=== PATIENT | female | born 1950 | race Caucasian/White ===

== ENCOUNTER 2018-04-10 06:30 | Emergency (ER) | payer OTHER ==
[~2018-04-10] VITALS: Ht 160 cm; Wt 68.0 kg
[~2018-04-10 06:30] MED LIST: ALEVE220 MG PO; AVELOX 400 MG400 MG PO; B-COMPLEX-VITA1 EACH; BYSTOLIC 5 MG5 M1; CARVEDILOL3.125 MG PO; CHOLESTEROL; COUMADIN; COUMADIN 2.5MG2.5 M1 PO; COUMADIN 5 MG TA5 M1 PO; DIABETA 2.5MG2.5 MG PO; DOXYCYCLINE 10100 M1 PO; ENOXAPARIN80 MG/0.1 SUBQ; FISHOIL; FUROSEMIDE 40 M40 M1 PO; GLUCOPHAGE500 MG PO; LANOXIN 0.250.25 M1 PO; LISINOPRIL; LOSARTAN-HCTZ1 EAC1 PO; MEDROLDOSEPACK PO; METFORMIN HCL500 M2 PO; NEXIUM40 MG PO; OMEPRAZOLE PO; OMEPRAZOLE20 MG PO; POTASSIUM20 PO; PRAVASTATIN SOD40 MG PO; PREDNISONE 10 M10 M1 PO; RESTORIL15 MG PO; VENLAFAXIN37.5 MG/1 PER TUBE; VENTOLIN HFA 1818 GM INH; VENTOLIN17 GM INH; ZANTAC 150MG T150 M1; [UNRECOGNIZED DRUG - CODE]; effexor
[2018-04-10 06:55] LABS: ABSOLUTE BASOPHILS 0.1 thou/uL (0.0-0.2); ABSOLUTE EOSINOPHILS 0.2 thou/uL (0.0-0.7); ABSOLUTE LYMPHOCYTES 0.9 thou/uL (0.8-5.3); ABSOLUTE MONOCYTES 0.6 thou/uL (0.0-1.2); ABSOLUTE NEUTROPHILS 6.5 thou/uL (1.6-8.1); BASOPHILS 0.9 %; EOSINOPHILS 1.9 %; HEMOGLOBIN 8.7 gm/dL (12.0-15.0); MONOCYTES 7.7 %; MPV 7.7 fl. (7.2-11.1); NUCLEATED RBCS 0 /100WBC; PLATELET COUNT* 213 thou/uL (150-400); POLYS 78.5 %; RBC 3.62 mil/uL (4.20-5.00); RDW-CV 15.6 % (10.5-14.5); WBC 8.2 thou/uL (4.0-11.0)
[2018-04-10 07:11] LABS: APTT 44.8 Seconds (25.0-31.3); PROTIME 69.8 Seconds (9.20-11.50)
[2018-04-10 07:12] LABS: ANION GAP 10 mmol/L (7-16); BUN 41 mg/dL (7-18); CALCIUM 7.6 mg/dL (8.5-10.1); CHLORIDE 101 mmol/L (98-107); CO2 23 mmol/L (21-32); CREATININE 1.4 mg/dL (0.6-1.3); GLUCOSE 196 mg/dL (70-99); POTASSIUM 3.5 mmol/L (3.5-5.1); SODIUM 134 mmol/L (136-145)
[2018-04-10 07:18] LABS: INR 7.4
[2018-04-10 07:23] LABS: ALBUMIN 3.4 g/dL (3.4-5.0); ALKALINE PHOSPHATASE 104 U/L (46-116); NT-PRO BRAIN NAT PEPTIDE 727 pg/mL (<300); SGOT 22 U/L (15-37); SGPT 15 U/L (30-65); TOTAL BILIRUBIN 0.4 mg/dL (<0.1-1.0); TOTAL PROTEIN 7.3 g/dL (6.4-8.2); TROPONIN-I LEVEL <0.06 ng/mL (<0.06)
[2018-04-10 09:52] LABS: URINE BILIRUBIN NEGATIVE (Negative); URINE BLOOD NEGATIVE (Negative); URINE CLARITY CLEAR; URINE COLOR YELLOW; URINE GLUCOSE-RANDOM NEGATIVE (Negative); URINE KETONES NEGATIVE (Negative); URINE LEUKOCYTES-REFLEX NEGATIVE (Negative); URINE NITRITE-REFLEX NEGATIVE (Negative); URINE PROTEIN TRACE (Negative); URINE SPECIFIC GRAVITY 1.025 (1.005-1.030); URINE UROBILINOGEN 0.2 E.U./dl (0.2-1.0)
[2018-04-10 11:29] VITALS: BP 111/43
--- NOTE | 2018-04-10 11:52 | EKG ---
[place] [address] ELECTROCARDIOGRAM REPORT Name: CIRILO COX Room: [facility]#: [id number] Admission: 04/10/18 Attend Phys: Discharge: Date of : 50 Report #: [id number] THIS REPORT FOR: //name// [facility] ED Test Date: 2018-04-10 Test Time: 06:51:36 Pat Name: CIRILO COX Department: Room: Gender: F Special Delivery Mail Carrier: ANNIE Diaz : 1950 Requested By: González Barbosa Order Number: [id number] MD: Gaston Dallas Measurements Intervals Dennis Rate: 61 P: TN: QRS: 164 QRSD: 170 T: 95 QT: 521 QTc: 525 Interpretive Statements Atrial fibrillation LBBB Electronically Signed On 04-10-2018 11:52:38 CDT by Gaston Dallas [email or web address] <ELECTRONICALLY SIGNED> By: Gasotn Dallas MD, [facility] 04/10/18 [id number] Gaston Dallas MD, FACC /EPI
== END 2018-04-10 11:30 | disposition home or self-care (01) ==
LOC: M.ERS 06:30
PROVIDERS: Family Medicine
DX: E11.649 Type 2 diabetes mellitus with hypoglycemia without coma (principal); D68.59 Other primary thrombophilia; I10 Essential (primary) hypertension; K21.9 Gastro-esophageal reflux disease without esophagitis; J44.9 Chronic obstructive pulmonary disease, unspecified; M06.9 Rheumatoid arthritis, unspecified; E78.5 Hyperlipidemia, unspecified; I48.91 Unspecified atrial fibrillation; Z86.718 Personal history of other venous thrombosis and embolism

== ENCOUNTER → 2018-07-12 | Outpatient (CLI) | payer OTHER ==
[~2018-07-12] MED LIST changes: +ADULT LOW DOSE81 MG PO; +ALDACTONE50 MG PO; +AMPICILLIN SODIU2 GM IV; +APAP650 PO; +CIPRO500 MG PO; +COLACE100 MG PO; +ENOXAPARIN100 MG/11 SUBQ; +ENOXAPARIN80 MG/0.8 SUBQ; +FLEXERIL PO; +GENTAMICIN60 MG/6 ML IV; +IRON325 PO; +LASIX 40 MG TAB40 M2 PO; +LEXAPRO 10 MG T10 M2 PO; +MIDODRINE HCL 55 M1 PO; +MIRALAX17 GM PO; +SYNTHROID25 MC1 PO
--- NOTE | 2018-07-12 14:41 | 2DMMODE ---
[place] [address] 2 D/M-MODE ECHOCARDIOGRAM Name: CIRILO COX Room: [facility]#: [id number] Admission: 07/12/18 Attend Phys: Joseluis Diaz, Discharge: Date of : 50 Date of Service: 07/12/18 1441 Report #: [id number] THIS REPORT FOR: //name// APPROVED REPORT Study performed: 07/12/2018 09:32:34 EXAM: Comprehensive 2D, Doppler, and color-flow Echocardiogram Patient Location: Out-Patient Status: routine BSA: 1.71 HR: 52 bpm BP: 120/70 mmHg Other Information Study Quality: Good Indications Aortic Valve Disease Mechanical Aortic Valve . Mechanical Mitral Valve 2D Dimensions LVEF(%): 33.77 (>50%) IVSd: 12.95 (7-11mm) LVOT Diam: 20.78 (18-24mm) LVDd: 55.52 mm PWd: 11.87 (7-11mm) Ascending Ao: 24.96 (22-36mm) LVDs: 46.49 (25-40mm) Aortic Root: 27.19 mm Holm's LVEF: 33.77 % Volumes Left Atrial Volume (Systole) LA ESV Index: 45.50 mL/m2 Aortic Valve AoV Peak Kendall.: 2.93 m/s AO Peak Gr.: 34.42 mmHg LVOT Max P.67 mmHg AO Mean Gr.: 19.55 mmHg LVOT Mean P.86 mmHg LVOT Max V: 0.65 m/s AO V2 VTI: 61.53 cm LVOT Mean V: 0.43 m/s KATINA (VTI): 0.84 cm2 LVOT V1 VTI: 15.20 cm Mitral Valve MV Decel. Time: 425.62 [place] [address] 2 D/M-MODE ECHOCARDIOGRAM Name: CIRILO COX Room: [facility]#: [id number] Admission: 07/12/18 Attend Phys: Joseluis Diaz, Discharge: Date of : 50 Date of Service: 07/12/18 1441 Report #: [id number] MV PHT: 123.43 ms MVA (PHT): 1.78 cm2 TDI Medial E' Kendall.: 0.08 m/s Lateral E' Kendall.: 0.11 m/s Pulmonary Valve PV Peak Kendall.: 1.01 m/s PV Peak Gr.: 4.09 mmHg Tricuspid Valve RAP Estimate: 10.00 mmHg TR Peak Gr.: 40.81 mmHg RVSP: 50.81 mmHg PA Pressure: 50.81 mmHg Left Ventricle The left ventricle is normal size. There is paradoxical septal motion Mild concentric left ventricular hypertrophy. Left ventricular systolic function is moderately decreased LVEF is 40%. The left ventricular diastolic function is normal. Right Ventricle Right ventricle is mild to moderately dilated. The right ventricular systolic function is normal. Atria Left atrium is mildly dilated. The right atrium size is normal. Aortic Valve The aortic prosthesis is noted Mechanical aortic valve is present. Mild aortic regurgitation. No hemodynamically significant valvular aortic stenosis. Mitral Valve The mitral prosthesis is noted There is a mechanical mitral valve. There is no mitral valve regurgitation noted. No evidence of mitral valve stenosis. Tricuspid Valve The tricuspid valve is normal in structure. Moderate tricuspid regurgitation. Pulmonic Valve The pulmonary valve is normal in structure. There is no pulmonic [place] [address] 2 D/M-MODE ECHOCARDIOGRAM Name: CIRILO COX [id number] Admission: 07/12/18 Attend Phys: Joseluis Diaz, Discharge: Date of : 50 Date of Service: 07/12/18 1441 Report #: [id number] Great Vessels The aortic root is normal in size. The inferior vena cava is dilated with no inspiratory collapse. Pericardium There is no pericardial effusion. <Conclusion> The left ventricle is normal size. Mild concentric left ventricular hypertrophy. Left ventricular systolic function is moderately decreased LVEF is 40%. Right ventricle is mild to moderately dilated. Left atrium is mildly dilated. The aortic prosthesis is noted Mild aortic regurgitation. No hemodynamically significant valvular aortic stenosis. The mitral prosthesis is noted There is no mitral valve regurgitation noted. No evidence of mitral valve stenosis. The tricuspid valve is normal in structure. Moderate tricuspid regurgitation. The inferior vena cava is dilated with no inspiratory collapse. There is no pericardial effusion. There is paradoxical septal motion Mechanical aortic valve is present. There is a mechanical mitral valve. <ELECTRONICALLY SIGNED> By: David Pinto MD, [facility] 07/12/18 1441 [id number] David Pinto MD, FACC /INF
== END ==
LOC: M.CRD 05-22 09:00
DX: I08.2 Rheumatic disorders of both aortic and tricuspid valves (principal); I50.42 Chronic combined systolic (congestive) and diastolic (congestive) heart failure; I48.91 Unspecified atrial fibrillation; J44.9 Chronic obstructive pulmonary disease, unspecified

== ENCOUNTER 2018-07-19 09:37 | Inpatient (IN) | payer OTHER ==
[~2018-07-19] VITALS: Ht 160 cm; Wt 73.9 kg
--- NOTE | ~2018-07-19 | PROC ---
[address] [address] PROCEDURE REPORT Name: CIRILO COX Room: [address] IN M.R.#: [id number] Admission: 07/19/18 Attend Phys: Regis Lua MD Discharge: 07/22/18 Date of : 50 Report #: [id number] THIS REPORT FOR: //name// For GI report, please see the Provation report in Perceptive 7 content. By: 1535Medical Records Staff SILVIO /OWEN
[~2018-07-19 09:37] MED LIST changes: -ADULT LOW DOSE81 MG PO; -ALDACTONE50 MG PO; -AMPICILLIN SODIU2 GM IV; -APAP650 PO; -CIPRO500 MG PO; -COLACE100 MG PO; -ENOXAPARIN100 MG/11 SUBQ; -ENOXAPARIN80 MG/0.8 SUBQ; -FLEXERIL PO; -GENTAMICIN60 MG/6 ML IV; -IRON325 PO; -LASIX 40 MG TAB40 M2 PO; -LEXAPRO 10 MG T10 M2 PO; -MIDODRINE HCL 55 M1 PO; -MIRALAX17 GM PO; -SYNTHROID25 MC1 PO
[2018-07-19] MEDS ORDERED: SYNTHROID25 MC1 PO (09:55)
[2018-07-19] MEDS ORDERED: LEXAPRO 10 MG T10 M2 PO (09:56)
[2018-07-19] MEDS ORDERED: LASIX 40 MG TAB40 M2 PO (09:56)
[2018-07-19] MEDS ORDERED: LOSARTAN-HCTZ1 EAC1 PO (09:57)
[2018-07-19] MEDS ORDERED: FLEXERIL PO (09:57)
[2018-07-19] MEDS ORDERED: ALDACTONE50 MG PO (09:58)
[2018-07-19 10:00] LABS: ABSOLUTE EOSINOPHILS 0.2 thou/uL (0.0-0.7); ABSOLUTE LYMPHOCYTES 0.9 thou/uL (0.8-5.3); ABSOLUTE MONOCYTES 0.6 thou/uL (0.0-1.2); ABSOLUTE NEUTROPHILS 3.7 thou/uL (1.6-8.1); BASOPHILS 0.8 %; EOSINOPHILS 3.2 %; HEMATOCRIT 20.8 % (37.0-47.0); LYMPHOCYTES 16.2 %; MCH 26.4 pg (26.0-34.0); MCHC 31.9 g/dL (28.0-37.0); MCV 82.6 fL (80.0-100.0); MONOCYTES 10.5 %; MPV 7.3 fl. (7.2-11.1); NUCLEATED RBCS 0 /100WBC; PLATELET COUNT* 271 thou/uL (150-400); POLYS 69.3 %; RBC 2.52 mil/uL (4.20-5.00); RDW-CV 17.8 % (10.5-14.5); WBC 5.3 thou/uL (4.0-11.0)
[2018-07-19 10:09] LABS: HEMOGLOBIN 6.6 gm/dL (12.0-15.0)
[2018-07-19 10:13] LABS: ANION GAP 11 mmol/L (7-16); BUN 143 mg/dL (7-18); CALCIUM 9.5 mg/dL (8.5-10.1); CHLORIDE 89 mmol/L (98-107); CO2 28 mmol/L (21-32); CREATININE 1.9 mg/dL (0.6-1.3); GLUCOSE 168 mg/dL (70-99); POTASSIUM 3.3 mmol/L (3.5-5.1); SODIUM 128 mmol/L (136-145)
[2018-07-19 10:24] LABS: ALBUMIN 4.3 g/dL (3.4-5.0); ALKALINE PHOSPHATASE 121 U/L (46-116); NT-PRO BRAIN NAT PEPTIDE 966 pg/mL (<300); SGOT 31 U/L (15-37); SGPT 19 U/L (30-65); TOTAL BILIRUBIN 0.5 mg/dL (<0.1-1.0); TOTAL PROTEIN 8.8 g/dL (6.4-8.2); TROPONIN-I LEVEL <0.06 ng/mL (<0.06)
[2018-07-19 10:24] LABS: URINE BILIRUBIN NEGATIVE (Negative); URINE BLOOD TRACE (Negative); URINE CLARITY CLEAR; URINE COLOR YELLOW; URINE GLUCOSE-RANDOM NEGATIVE (Negative); URINE KETONES NEGATIVE (Negative); URINE LEUKOCYTES-REFLEX NEGATIVE (Negative); URINE NITRITE-REFLEX NEGATIVE (Negative); URINE PROTEIN NEGATIVE (Negative); URINE UROBILINOGEN 0.2 E.U./dl (0.2-1.0)
[2018-07-19 10:28] LABS: PROTIME 19.3 Seconds (9.20-11.50)
[2018-07-19 13:08] VITALS: BP 100/57; BP 71/31; BP 79/38; BP 89/36
[2018-07-19] MEDS ORDERED: IRON325 PO (13:52)
--- NOTE | 2018-07-19 15:00 | NUR ---
VSS, ASSUMED CARE OF PT FROM ER, ASSESSMENT PERFORMED AND CHARTED, FALL PRECAUTIONS IN PLACE AND CALL LIGHT IN REACH, PT IS A&O4 BUT VERY SLEEPY AND FORGETFUL. PT DENIES ANY PAIN, IS SB ON THE MOINITOR AND ON RA, PT IS UP WITH ONE, HER ABDOMINE IS DISTENDED AND ROUND, BP'S ARE SOFT AND I HAVE AN ORDERED TO TRANSFUSE 500 ML OF NS, WILL FOLLOW WITH PLAIN OF CARE AND HOURLY ROUNDS,
[2018-07-19 16:00] VITALS: BP 100/57
--- NOTE | 2018-07-19 17:59 | EKG ---
[place] [address] ELECTROCARDIOGRAM REPORT Name: CIRILO COX Room: [address] ADM IN M.R.#: [id number] Admission: 07/19/18 Attend Phys: Regis Lua MD Discharge: Date of : 50 Report #: [id number] THIS REPORT FOR: //name// [facility] ED Test Date: 2018-07-19 Test Time: 10:17:38 Pat Name: CIRILO COX Department: Room: [facility] Gender: F Engraved Roller Inspector: Joe HATHAWAY : 1950 Requested By: Kwesi Cruz Order Number: [id number] MD: Joseluis Diaz Measurements Intervals Thorpe Rate: 61 P: SD: QRS: 187 QRSD: 200 T: 74 QT: 497 QTc: 501 Interpretive Statements Atrial fibrillation Ventricular premature complex Nonspecific intraventricular conduction delay Compared to ECG 04/10/2018 06:51:36 Ventricular premature complex(es) now present Intraventricular conduction delay now present Left bundle-branch block no longer present Electronically Signed On 07-19-2018 17:58:56 CDT by Joseluis Diaz [email or web address] <ELECTRONICALLY SIGNED> By: Joseluis Diaz MD, FAC 07/19/18 1758 1017 [id number] Joseluis Diaz MD, [facility] /EPI
[2018-07-19 20:00] VITALS: BP 76/34
[2018-07-19 20:23] LABS: HEMATOCRIT 20.8 % (37.0-47.0)
[2018-07-19 20:43] LABS: HEMOGLOBIN 6.7 gm/dL (12.0-15.0)
[2018-07-19 23:56] VITALS: BP 75/29; BP 76/39; BP 79/28; BP 80/27; BP 83/34; BP 84/35
[2018-07-20] VITALS: BP 76/39
[2018-07-20 04:00] VITALS: BP 84/35
[2018-07-20 04:41] LABS: ABSOLUTE EOSINOPHILS 0.2 thou/uL (0.0-0.7); ABSOLUTE LYMPHOCYTES 1.1 thou/uL (0.8-5.3); ABSOLUTE MONOCYTES 0.7 thou/uL (0.0-1.2); ABSOLUTE NEUTROPHILS 3.3 thou/uL (1.6-8.1); BASOPHILS 0.9 %; EOSINOPHILS 3.8 %; HEMATOCRIT 23.4 % (37.0-47.0); HEMOGLOBIN 7.6 gm/dL (12.0-15.0); LYMPHOCYTES 21.1 %; MCH 26.9 pg (26.0-34.0); MCHC 32.7 g/dL (28.0-37.0); MCV 82.3 fL (80.0-100.0); MONOCYTES 12.4 %; MPV 7.8 fl. (7.2-11.1); NUCLEATED RBCS 0 /100WBC; PLATELET COUNT* 235 thou/uL (150-400); POLYS 61.8 %; RBC 2.84 mil/uL (4.20-5.00); RDW-CV 17.4 % (10.5-14.5); WBC 5.3 thou/uL (4.0-11.0)
[2018-07-20 04:51] LABS: INR 2.4; PROTIME 23.5 Seconds (9.20-11.50)
[2018-07-20 05:04] LABS: ALBUMIN 3.4 g/dL (3.4-5.0); CALCIUM 8.2 mg/dL (8.5-10.1); POTASSIUM 3.3 mmol/L (3.5-5.1); TOTAL BILIRUBIN 0.6 mg/dL (<0.1-1.0)
--- NOTE | 2018-07-20 05:27 | NUR ---
ASSUMED CARE OF PT AFTER REPORT AT 1930. PT A&OX4 AND LETHARGIC. VS TAKEN AND RECORDED. PHYSICAL ASSESSMENT COMPLETED AND CHARTED. PT ON RA WITH 98% O2 SAT. PT TRACING SR BBB ON TELE. PT UP WITH 1 ASSIST TO COMMODE. PTS HGB 6.7-INFORMED DR AARON WITH NEW ORDERS.HOOKED 1 UNIT PACKED RBC PROPERLY TYPED AND CROSSMATCHED AND NO UNTOWARD REACTION NOTED.INSTRUCTED ON NPO POST MIDNIGHT.COMMUNICATES UNDERSTANDING. DENIES ANY PAIN OR DISCOMFORT. HOURLY ROUNDING OBSERVED. HS REST & SAFETY GOALS ACHIEVED. CALL LIGHT WITHIN REACH.
[2018-07-20 09:30] VITALS: BP 77/32
[2018-07-20 11:56] VITALS: BP 89/38
--- NOTE | 2018-07-20 14:32 | NUR ---
Pt is A&O. at bedside. Pt is independent with ADLs, assists as needed. Pt has a walker, but does not use it currently. Pt has nebulizer. No hx of HH or SNF. Goal is to return home at dc, no needs anticipated. Following.
[2018-07-20 16:36] VITALS: BP 100/47
[2018-07-20 17:08] LABS: HEPATITIS B SURFACE AG Negative (Negative)
--- NOTE | 2018-07-20 18:24 | NUR ---
ASSUMED PT CARE AT 0700 PT IS ALERT AND ORIENTED X 3-4 PT HAS EPISODES OF FORGETFULNESS, PT DENIES PAIN OR SOA ON RA, PT IS UP WITH ASSIST X 1 BEDSIDE COMMODE, PT IS SR BBB PVC ON THE MONITOR, PT WAS NPO HAS ABDONMINAL ULTRASOUND AND ABLE TO EAT, GI SAW PT ORDERED FOR PT TO HAVE EGD TOMORROW PT IS NPO AT MIDNIGHT, PT HGB AT BEGINNING OF SHIFT WAS 7.6 PHYSICIAN ORDERED REDRAW AND ORDERD IF HGB WAS BELOW 7.5 TO TRANSFUSE 1 UNIT OF BLOOD REDRAW SHOWED PT HGB 8.1 NOTIFIED PHYSICIAN NO NEW ORDERS, GI WANTS PT COUMADIN HELD FOR EGD THIS NURSE HELD COUMADIN, WILL CONTINUE TO MONITOR
[2018-07-20 20:00] VITALS: BP 90/29
[2018-07-20 22:14] LABS: IgA 404 mg/dL (87-352); IgG 1025 mg/dL (700-1600); IgM 132 mg/dL (26-217)
[2018-07-21] VITALS (7 sets, daily range): BP systolic 80–115; BP diastolic 31–61
[2018-07-21 04:50] LABS: HEMOGLOBIN 7.7 gm/dL (12.0-15.0); MCH 26.5 pg (26.0-34.0); MCHC 31.8 g/dL (28.0-37.0); MCV 83.1 fL (80.0-100.0); MPV 7.4 fl. (7.2-11.1); RBC 2.89 mil/uL (4.20-5.00); RDW-CV 17.1 % (10.5-14.5); WBC 5.2 thou/uL (4.0-11.0)
--- NOTE | 2018-07-21 04:56 | NUR ---
ASSUMED CARE OF PT AFTER REPORT AT 1930. PT A&OX4 BUT FORGETFUL. VSS. PHSICAL ASSESSMENT COMPLETED AND CHARTED. PT ON RA WITH 92% O2 SAT. PT TRACING SR BBB ON TELE. PT UP STANBY ASSIST TO COMMODE. INSTRUCTED ON NPO FOR EGD TODAY. COMMUNICATES UNDERSTANDING BUT NEED REINFORCEMENT. DENIES ANY PAIN OR DISCOMFORT. HOURLY ROUNDING OBSERVED. HS REST & SAFETY GOALS ACHIEVED. CALL LIGHT WITHIN REACH. BED IN LOW POSITION. BED ALARM ON.
[2018-07-21 04:58] LABS: INR 2.1; PROTIME 21.7 Seconds (9.20-11.50)
[2018-07-21 05:06] LABS: ALBUMIN 3.5 g/dL (3.4-5.0); CALCIUM 8.6 mg/dL (8.5-10.1); CREATININE 1.4 mg/dL (0.6-1.3); PHOSPHORUS* 3.7 mg/dL (2.5-4.9); POTASSIUM 3.6 mmol/L (3.5-5.1); TOTAL BILIRUBIN 0.6 mg/dL (<0.1-1.0); TOTAL PROTEIN 6.7 g/dL (6.4-8.2)
--- NOTE | 2018-07-21 09:23 | CON ---
[address] [address] CONSULTATION Name: BROOKECIRILO Room: [address] IN M.R.#: [id number] Admission: 07/19/18 Attend Phys: Regis Lua MD Discharge: Date of : 50 Report #: [id number] THIS REPORT FOR: //name// CC: Regis Prasad [facility] CONSULTING PHYSICIAN: Regis Lau MD. REASON FOR CONSULTATION: Acute kidney injury. HISTORY OF PRESENT ILLNESS: A 68-year-old female with no known history of kidney disease, no outpatient kidney doctor who was admitted with anemia, weakness and confusion. She had a hemoglobin of 6.6 on admission. She denies any bright red blood per rectum or dark stools. Denies any hemoptysis, hematemesis, nosebleeds. Denies any NSAID use. No recent nausea, vomiting, diarrhea or decreased intake. She does have a history of a mechanical heart valve and ascites, which is thought to possibly be cardiogenic in nature. Cardiology and GI have both been consulted to see her. She does have some short-term memory loss. Her daughter is present at the bedside and tells me that about a month ago, Aldactone was added to her medication regimen. She had a creatinine of 1.9 on admission with a BUN of 143. REVIEW OF SYSTEMS: Constitutional, psych, heme, eyes, ENT, respiratory, cardiac, GI, , endocrine, all negative except as documented above. PAST MEDICAL HISTORY: Diabetes type 2, rheumatoid arthritis, history of aortic and mitral valve replacements, COPD, cardiomyopathy, ascites, AFib, history of cervical cancer, dyslipidemia, GERD. SOCIAL HISTORY: Former smoker and also positive history of alcohol. FAMILY HISTORY: Not pertinent in this 68-year-old female. MEDICATIONS: Reviewed. PHYSICAL EXAMINATION: VITAL SIGNS: Blood pressure 84/35, pulse 65, temperature is 36.4. GENERAL: I examined her, in no acute distress. EYES: Open. EARS: Externally normal. CARDIOVASCULAR: Regular rate. LUNGS: Diminished breath sounds. ABDOMEN: Soft and nontender. No rebound. MUSCULOSKELETAL: Nontender. PSYCHIATRIC: Awake, alert. LABORATORY DATA: White cell count 5.3, hemoglobin 7.6, platelets [place] [address] CONSULTATION Name: BROOKECIRILO Room: [address]#: [id number] Admission: 07/19/18 Attend Phys: Regis Lua MD Discharge: Date of : 50 Report #: [id number] 131, potassium 3.3, chloride 94, bicarbonate 28, BUN 141, creatinine 2, glucose 86, calcium 8.2, albumin 3.4. ASSESSMENT: 1. Acute kidney injury with admission creatinine of 1.9 and BUN of 143 in the setting of Lasix, losartan and hydrochlorothiazide and recent addition of Aldactone. Chest x-ray was okay, 03/2018 creatinine was 1. Albumin is 3.4. CK is okay. UA is noted. Ultrasound showed kidneys to be okay and CT scan did not reveal any retroperitoneal hematoma. INR was therapeutic on admission. 2. Diabetes type 2, rheumatoid arthritis, cervical cancer, ascites, thought to be secondary to heart failure, atrial fibrillation, chronic obstructive pulmonary disease, cardiomyopathy, 07/2017 ejection fraction was 40% with a pulmonary artery pressure of 44. 3. Aortic and mitral valve replacements. 4. Anemia with a hemoglobin of 6.[address] scan did not reveal any retroperitoneal hematoma. There is no obvious source of bleeding. INR was therapeutic on admission. 5. Hypotension. 6. Hyponatremia with a sodium of 131 on 07/20/2018. 7. Hypokalemia with potassium of 3.3 on 07/20/2018. PLAN: 1. Check blood cultures x 2. 2. We will check SPEP, serum immunofixation, free light chain assay. 3. Check magnesium. Potassium is being replaced. 4. Send urine protein to creatinine ratio. 5. Midodrine 5 mg t.i.d. Blood pressure medications and diuretics are currently on hold. 6. Check stool occult x 3. 7. Continue IV fluid for the time being. 8. Check labs again in the a.m. Thank you for requesting my opinion in the care and management of this patient. <ELECTRONICALLY SIGNED> By: Tisha Bullock MD 07/21/18 0923 1121 [id number] Bullock MD /nt
--- NOTE | 2018-07-21 13:11 | NUR ---
ASSUMED PT CARE AT 0700 PT IS ALERT AND ORIENTED X 4 PT IS FORGETFUL EXPLAINED PT COULD NOT HAVE ANYTHING TO EAT OR DRINK UNTIL AFTER PROCEDURE, CARDIOLOGY SAW PT AND OK FOR PT TO HAVE 1 8 OUNCE GLASS OF WATER THIS AM WHICH PT HAD, HOSPITALIST ORDERED FOR PT TO HAVE LUNCH TRAY AND HAVE NURSING STAFF HOLD UNTIL AFTER PROCEDURE, PT IS SR BBB PVC ON THE MONITOR, PT IS UP WITH ASSIST X 1 TO BEDSIDE COMMODE PT IS A FALL RISK BED ALARM IS ON, PT WENT DOWN FOR EGD AROUND 1230, WILL CONTINUE TO MONITOR
[2018-07-21 16:12] LABS: KAPPA FREE LIGHT CHAINS 80.5 mg/L (3.3-19.4); LAMBDA FREE LIGHT CHAINS 55.1 mg/L (5.7-26.3)
[2018-07-22] VITALS: BP 95/39
[2018-07-22 04:00] VITALS: BP 98/53
[2018-07-22 04:37] LABS: HEMATOCRIT 24.9 % (37.0-47.0); HEMOGLOBIN 7.8 gm/dL (12.0-15.0); MCH 26.6 pg (26.0-34.0); MCHC 31.5 g/dL (28.0-37.0); MCV 84.6 fL (80.0-100.0); MPV 7.5 fl. (7.2-11.1); RBC 2.95 mil/uL (4.20-5.00); RDW-CV 16.8 % (10.5-14.5); WBC 6.1 thou/uL (4.0-11.0)
[2018-07-22 04:49] LABS: INR 1.7; PROTIME 17.5 Seconds (9.20-11.50)
--- NOTE | 2018-07-22 05:22 | NUR ---
ASSUMED CARE OF PATIENT. PT A&O TIMES 4 BUT FORGETFUL. PT SR WITH BBB ON MONITOR. NO REPORTS OF PAIN. IV PATENT, FLUIDS INFUSING. PT UP TO BSC THROUGH NIGHT. WILL CONTINUE WITH PLAN OF CARE.
[2018-07-22 05:43] LABS: ALBUMIN 3.4 g/dL (3.4-5.0); CALCIUM 8.2 mg/dL (8.5-10.1); MAGNESIUM 1.8 mg/dL (1.8-2.4); POTASSIUM 3.7 mmol/L (3.5-5.1); TOTAL BILIRUBIN 0.7 mg/dL (<0.1-1.0); TOTAL PROTEIN 6.4 g/dL (6.4-8.2)
--- NOTE | 2018-07-22 09:22 | NUR ---
PT RESTING IN BED, APPEARS ALERT O X 4, DENIES CHEST PAIN, SOB, MEME OR DISCOMFORT. COULD EASILY STATE SHE WAS AT [facility], AND DATE WAS Jul. SPOUSE AT [facility], STATES HE BELIVES PTS COGNITIONS SEENMS TO BE BACK AT BASELINE. PER REPOR PT HAS BEEN FORGETFUL,WITH PERIODS OF CONFUSION
[2018-07-22 09:26] VITALS: BP 106/40
[2018-07-22] MEDS ORDERED: MIDODRINE HCL 55 M1 PO (10:31)
[2018-07-22] MEDS ORDERED: COUMADIN 2.5MG2.5 M1 PO (10:31)
[2018-07-22 10:54] VITALS: BP 106/40
[2018-07-22] MEDS ORDERED: ENOXAPARIN100 MG/11 SUBQ (11:42)
[2018-07-22 11:43] VITALS: BP 106/40
[2018-07-22] MEDS ORDERED: ENOXAPARIN80 MG/0.8 SUBQ (12:07)
--- NOTE | 2018-07-22 13:10 | CON ---
[address] [address] CONSULTATION Name: CIRILO COX Room: [address] IN .R.#: [id number] Admission: 07/19/18 Attend Phys: Regis Lua MD Discharge: Date of : 50 Report #: [id number] THIS REPORT FOR: //name// CC: Regis Rodriguez REASON FOR HOSPITALIZATION: Patient with history of aortic and mitral valve replacements with mechanical valves, on chronic anticoagulation, admitted to the hospital with mental status changes. HISTORY OF PRESENT ILLNESS: The patient is a very pleasant 68-year-old white female who is well known to myself. She was admitted to the hospital with lethargy. She has a history of mechanical aortic and mitral valve replacement remotely and is chronically anticoagulated with warfarin. CT head showed no acute abnormality. She was recently noted to have some ascites as an outpatient and was placed on increased doses of diuretics. On admission, she has uremia with a BUN of 143. Her creatinine was 1.9. CT of the abdomen on admission showed no evidence of ascites. She does state that her abdominal distention has improved since her diuretics were increased. She does not have lower extremity swelling. Recent echocardiogram shows normally functioning aortic and mitral valves. She does have a trace to mild periaortic valvular leak. This is chronic. She has history of chronic heart failure with an ejection fraction of 40%. She has been maintained on chronic diuretic therapy. She at present denies any chest pain, tightness or pressure. She is not having shortness of breath. She is without other cardiac complaint. PAST MEDICAL HISTORY: 1. Combined diastolic and systolic congestive heart failure. 2. Nonischemic cardiomyopathy. 3. Chronic atrial fibrillation. 4. Chronic bundle-branch block. 5. History of chronic obstructive pulmonary disease. 6. Moderate pulmonary hypertension. 7. Essential hypertension. 8. Gastroesophageal reflux disease. 9. Hyperlipidemia. 10. Long-term anticoagulation. 11. Arthritis. 12. Type 2 diabetes mellitus. FAMILY HISTORY: The patient's mother had a history of heart valve replacement, also history of stroke. The patient's father had a stroke. SOCIAL HISTORY: The patient drinks alcohol to a moderate extent. She quit [place] in [address] [place] [address] CONSULTATION Name: CIRILO COX Room: [address]#: [id number] Admission: 07/19/18 Attend Phys: Regis Lua MD Discharge: Date of : 50 Report #: [id number] ALLERGIES: None documented. HOME MEDICATIONS: Carvedilol 3.125 mg p.o. b.i.d., Flexeril 10 mg p.o. t.i.d. p.r.n., Lexapro 10 mg daily, iron sulfate 325 mg daily, furosemide 40 mg b.i.d., Synthroid 25 mcg daily, losartan/hydrochlorothiazide 100/25 one tablet daily, omeprazole 20 mg b.i.d., pravastatin 40 mg at bedtime, spironolactone 50 mg daily, warfarin 2.5 mg daily. PHYSICAL EXAMINATION: VITAL SIGNS: Blood pressure 88/34, pulse is irregular and in the 50s. GENERAL: This is a pleasant lady, who does not appear to be in distress. Mood and affect appear appropriate. HEENT: Extraocular muscles intact. Mucous membranes are moist. NECK: Shows no jugular venous distention. There are no carotid bruits. CHEST: Reveals clear lung harrington without wheezes or rales. CARDIAC: Reveals an irregularly irregular rhythm. Rate is well controlled. Aortic valve click crisp. Grade 2/6 systolic ejection murmur appreciated. ABDOMEN: Reveals abdomen to be soft and nontender. EXTREMITIES: Shows no edema. SKIN: Warm and dry. LABORATORY DATA: A 12-lead EKG shows atrial fibrillation with a slow ventricular response rate with nonspecific intraventricular conduction delay. I do not appreciate acute ST or T-wave abnormalities. Chest x-ray shows cardiomegaly with clear lung harrington. Labs are reviewed. White blood cell count 5.3, hemoglobin 6.6, MCV 82.6, platelet count 271,000. INR 2.0. Sodium 128, potassium 3.3, chloride 89, bicarbonate 28, BUN 143, creatinine 1.9, serum glucose 168. Troponin less than 0.06. NT-proBNP 966. IMPRESSION AND RECOMMENDATIONS: 1. Mechanical aortic and mitral valve prostheses in place. Continue anticoagulation at present with goal INR 2.0-3.5. Should the patient require invasive procedure, okay to hold warfarin and bridge with Lovenox as needed. We will follow. 2. Ascites, resolved with aggressive diuresis. Diuretics currently being held. Possible liver biopsy in the near future. We will follow clinically. Etiology could be due to right heart failure. 3. Combined chronic systolic and diastolic heart failure, presently well compensated. Holding diuretics as the patient appears to be moderately over diuresed at this time. 4. Vujgw-hi-oayvhnx renal failure, likely secondary to diuresis. The patient will be rehydrated gently. Follow up labs in [facility] [address] [place] [address] CONSULTATION Name: CIRILO COX Room: [address] IN [facility]#: [id number] Admission: 07/19/18 Attend Phys: Regis Lua MD Discharge: Date of : 50 Report #: [id number] 5. Chronic anticoagulation with warfarin. Repeat INR in a.m. Continue home dose at this time. 6. Remote history of hypertension. The patient's blood pressure actually low at the present. We will discontinue carvedilol at this time. We will follow clinically. <ELECTRONICALLY SIGNED> By: Joseluis Diaz MD, FACC 07/22/18 1310 1658 [id number] sc[facility] campussawyer Diaz MD, FACC /nt
[2018-07-22 13:15] VITALS: BP 106/40
--- NOTE | 2018-07-25 16:43 | EEG ---
[address] [address] EEG STUDY REPORT Name: BROOKECIRILO Room: [address] IN M.R.#: [id number] Admission: 07/19/18 Attend Phys: Regis Lua MD Discharge: 07/22/18 Date of : 50 Report #: [id number] THIS REPORT FOR: //name// CC: Regis Rodriguez HISTORY: The patient is a 68-year-old female with altered consciousness. An EEG is requested for further evaluation. DESCRIPTION: Using the 10-20 electrode system, a portable EEG was performed. The record demonstrates a moderate amplitude 6 Hz posterior dominant rhythm that attenuates with eye opening. Stage I sleep is characterized by attenuation of the background record. Photic stimulation was not activating. No focal abnormalities or epileptiform discharges were noted. IMPRESSION: This is an abnormal adult awake to stage 1 sleep record consistent with mild diffuse cerebral dysfunction. This is a nonspecific finding and may be seen in encephalopathy, drowsiness or medication effect. <ELECTRONICALLY SIGNED> By: Sanjuanita Ingram DO 07/25/18 1643 1217 [id number] Ingram DO /nt
--- NOTE | 2018-07-26 09:12 | CON ---
[address] [address] CONSULTATION Name: CIRILO COX Room: [address] IN M.R.#: [id number] Admission: 07/19/18 Attend Phys: Regis Lua MD Discharge: 07/22/18 Date of : 50 Report #: [id number] THIS REPORT FOR: //name// CC: Regis Prasad [facility] DATE OF SERVICE: 07/20/2018 HISTORY OF PRESENT ILLNESS: This is a 68-year-old female patient who was evaluated by me for confusion. Apparently, this patient is having confusion, progressive weakness, progressive unsteadiness of the gait for several weeks and it has been worse in the last couple of weeks. She has a longstanding history of drinking significant amount of alcohol. She did stop about a week and half ago, but is not certain what time she stopped and why she stopped it. She has been sleepy, lethargic, fatigued. She has a history of ascites. She does not know anything which makes it better or worse. REVIEW OF SYSTEMS: Indicates she has confusion. She has a history of longstanding alcohol abuse. She has a history of atrial fibrillation. Apparently, she is on anticoagulation for this atrial fibrillation for a long time. She also has a heart valve replacement, but the family thinks she is on anticoagulation because of atrial fibrillation. They do not know if the valves are compatible with MRI or not. She also has renal failure. She has subtherapeutic anticoagulation. She has a history of ascites. Record indicates she has a history of cardiomyopathy and congestive heart failure. She has a history of chronic obstructive pulmonary disease, hyperlipidemia. She apparently has a history of diabetes. This was relevant 14-point review of systems. She does not have any new eye, ENT, cardiac, GI, , musculoskeletal, constitutional, dermatological, hematological, psychiatric, throat, allergic symptom associated with present symptomatology. PAST MEDICAL HISTORY: Positive for pretty heavy alcohol intake. FAMILY HISTORY: Negative for early age strokes. SOCIAL HISTORY: She drinks large amount of alcohol for a long time. PHYSICAL EXAMINATION: Indicates that the patient is alert, responsive. She was able to tell me what month it is, but could not tell me the date. She knew what hospital she is in. She thought for some time, but was ultimately able to name the present president. Cranial nerve examination 2-12 looks unremarkable. Strength, sensation, reflexes and tone look symmetrical. She could not cooperate with the fundus examination. She is a moderately built individual who does not have any dysmorphic features of eyes, ears and face. Her vision and hearing look adequate[place] [address] CONSULTATION Name: CIRILO COX Room: [address] IN M.R.#: [id number] Admission: 07/19/18 Attend Phys: Regis Lua MD Discharge: 07/22/18 Date of : 50 Report #: [id number] edema, cyanosis or jaundice. I believe the pulses are palpable, although difficult to feel. Cardiac examination as indicated that she has replaced valves. She does have scattered rhonchi on both sides, but does not appear to be having any marked respiratory difficulty. Vital signs indicate a blood pressure of 84/35, respiration is 16, pulse is 65, temperature is 97.6. IMPRESSION: Her last hemoglobin was 7.6 and it was as low as 6.6 at one time. Sodium and potassium is low and creatinine is high at 2.9. Her TSH is abnormal, although free T4 is okay. She did have a CT scan of the head on admission, which does not show any definite abnormality. IMPRESSION: 1. A lot of her problem is because of systemic conditions. Systemic conditions which may be contributing to her problems include hypertension, anemia, multiple abnormalities in the blood. That will cause her to have fatigue and weakness and may contribute to her confusion. Confusion needs further evaluation. Part of it may be alcohol-induced dementia, but other causes need to be excluded, especially hepatic encephalopathy. We will work her up further recommendation. If MRI can be done, we would like to do the MRI in this patient. 2. I will get an EEG done. 3. We will start the patient on thiamine. 4. We will see how she does with physical therapy. 5. We will see how she does after her systemic problems are corrected and how much improvement she makes, and then decide about the further management after that. Thank you very much for this referral and if you have any question, please feel free to contact me. <ELECTRONICALLY SIGNED> By: Mykel Vail MD 07/26/18 0912 1043 [id number] Vail MD /nt
--- NOTE | 2018-07-29 07:55 | CON ---
[address] [address] CONSULTATION Name: CIRILO COX Room: [address] IN M.R.#: [id number] Admission: 07/19/18 Attend Phys: Regis Lua MD Discharge: 07/22/18 Date of : 50 Report #: [id number] THIS REPORT FOR: //name// CC: Regis Rodriguez MD DATE OF SERVICE: 07/19/2018 REFERRING PHYSICIAN: Regis Lua MD REASON FOR CONSULTATION: Mental status changes. IMPRESSION: 1. Mental status changes -- doubt related to liver disease as there is no evidence to suggest portal hypertension at this time. 2. Normocytic anemia of uncertain etiology -- no history of gastrointestinal blood loss. 3. Mitral and aortic valve replacements with mechanical valve requiring chronic anticoagulation for the same. 4. Ischemic cardiomyopathy with ejection fraction of 40%. 5. Ascites of uncertain etiology, which may be related to cardiogenic ascites versus less likely liver disease. 6. Chronic alcohol abuse with daily use. 7. Rheumatoid arthritis. 8. Tnwde-mn-ntagryp renal failure with a GFR of only 29. 9. Diabetes mellitus. RECOMMENDATIONS: 1. I reviewed the patient's CT scan and while it demonstrates there is no evidence to suggest no spleen nor any ascites. Does have, however, a lot of stool in her colon, which may make her abdomen appear to be very distended. I did not see any evidence of bowel obstruction nor any other issues. 2. We will hold diuretics for now due to worsening renal function. 3. We will proceed with an abdominal ultrasound with Dopplers of hepatic and portal veins tomorrow. 4. We will give the patient gentle hydration given her history of CHF with poor ejection fraction. 5. Would consult Neuro for mental status changes including new confusion, hallucinations, etc. 6. Await cardiovascular evaluation by Dr. Diaz. 7. Once renal function is improved, would like for Interventional Radiology to proceed with a transjugular liver biopsy with measurement of the hepatoportal venous gradient to sort all this out. 8. We will proceed with upper endoscopy when the [place] [address] CONSULTATION Name: CIRILO COX Joe Room: [address] IN [facility].#: [id number] Admission: 07/19/18 Attend Phys: Regis Lua MD Discharge: 07/22/18 Date of : 50 Report #: [id number] undergo the same for her anemia. 9. We will request records from her primary care provider, Dr. Rodriguez and Dr. Kamla Fischer from [facility] whom she sees in the past. I have discussed the plans with the patient as well as her family and they are agreeable to the same. HISTORY OF PRESENT ILLNESS: The patient is a pleasant 68-year-old white female who was admitted to the hospital because of problems with some mental status changes of uncertain etiology. The patient is not a good historian. Most of the history is obtained from the patient's family. The patient has just not been acting right, recently and without any complaints referable to her upper or lower GI tract. She apparently has some history of ascites which was thought to be grossly cardiogenic in origin and was seen by Dr. Kamla Fischer, gastrologist at [facility] in [facility], but has not had any further evaluation regarding the same. She has been unsteady, had some problem with her gait. She has been having some hallucinations off and on for last several weeks. She also has been sleepy and lethargic. She does have history of chronic alcohol use on daily basis, but no history of obvious liver disease. She is admitted to the hospital for further evaluation and treatment. ALLERGIES: None. MEDICATIONS: Include carvedilol, warfarin, levothyroxine, Lexapro, furosemide, spironolactone, cyclobenzaprine, losartan with hydrochlorothiazide, pravastatin and omeprazole. PAST MEDICAL HISTORY: Remarkable for chronic atrial fibrillation. She also has aortic and mitral valve replacements, has underlying hypertension and COPD. She has had problem with chronic arthritis and possibly rheumatoid arthritis, hyperlipidemia. She has had DVTs in the past, history of atrial fibrillation. SOCIAL HISTORY: The patient is a former smoker, drinks alcohol on a regular basis. FAMILY HISTORY: Negative. PHYSICAL EXAMINATION: GENERAL: This is an ill-appearing 68-year-old white female who is awake and alert, but confused. CARDIOPULMONARY: Revealed a regular rate and rhythm. LUNGS: Clear. ABDOMEN: Soft, but not particularly tender. She does have an enlarged liver, but she has a lot of stool within the colon. LABORATORY DATA: From admission revealed a white count of 5.3; hemoglobin 6.6; platelet count 271,000; MCV is 82.6 and RDW 17.8. Her protime is 19.[address] [place] [address] CONSULTATION Name: CIRILO COX Room: [address] IN ..#: [id number] Admission: 07/19/18 Attend Phys: Regis Lua MD Discharge: 07/22/18 Date of : 50 Report #: [id number] INR of 2.0. On admission, her sodium is 128, potassium 3.3, chloride 89, CO2 is 28. Her BUN is 143 and creatinine 1.9. Bilirubin 0.5, alkaline phosphatase is 121, AST is 31, ALT 19, her albumin is 4.3. Ammonia level is 14. Total CPK is 113. T4 1.06. Her iron saturation is 51% with ferritin of 27. CT scan was reviewed and revealed a large amount of stool throughout the colon, some hepatomegaly, there may be some diverticulosis in the sigmoid colon. DISCUSSION: At the present time, the patient has been agitated, may be related to dehydration or other causes. We will not related to hepatic encephalopathy. We will follow the patient while she is in the hospital and make further recommendations during the hospital stay. <ELECTRONICALLY SIGNED> By: Dexter Henley DO 07/29/18 0755 0522 [id number] Henley DO /nt
== END 2018-07-22 13:11 | disposition home or self-care (01) | DRG 377 ==
LOC: M.ERS 09:37 → M.TBA-ER 11:24 → M.2W 11:24
PROVIDERS: Emergency Medicine Emergency Medical Services; Internal Medicine; Internal Medicine Cardiovascular Disease; Internal Medicine Gastroenterology; Internal Medicine Nephrology; ADMIT Internal Medicine
PROC: 30233N1 Transfusion of Nonautologous Red Blood Cells into Peripheral Vein, Percutaneous Approach (ICD-10-PCS; principal; 2018-07-19)
PROC: 0DJ08ZZ Inspection of Upper Intestinal Tract, Via Natural or Artificial Opening Endoscopic (ICD-10-PCS; 2018-07-21)
DX: K92.2 Gastrointestinal hemorrhage, unspecified (principal); G93.40 Encephalopathy, unspecified; I50.42 Chronic combined systolic (congestive) and diastolic (congestive) heart failure; N17.9 Acute kidney failure, unspecified; I13.0 Hypertensive heart and chronic kidney disease with heart failure and stage 1 through stage 4 chronic kidney disease, or unspecified chronic kidney disease; E87.1 Hypo-osmolality and hyponatremia; K21.9 Gastro-esophageal reflux disease without esophagitis; J44.9 Chronic obstructive pulmonary disease, unspecified; E87.6 Hypokalemia; F03.90 Unspecified dementia, unspecified severity, without behavioral disturbance, psychotic disturbance, mood disturbance, and anxiety; K70.31 Alcoholic cirrhosis of liver with ascites; D50.0 Iron deficiency anemia secondary to blood loss (chronic); N18.9 Chronic kidney disease, unspecified; M06.9 Rheumatoid arthritis, unspecified; I48.2 Chronic atrial fibrillation; I27.20 Pulmonary hypertension, unspecified; E78.5 Hyperlipidemia, unspecified; Z87.891 Personal history of nicotine dependence; Z85.41 Personal history of malignant neoplasm of cervix uteri; Z95.2 Presence of prosthetic heart valve; Z86.718 Personal history of other venous thrombosis and embolism; Z79.01 Long term (current) use of anticoagulants; Z79.899 Other long term (current) drug therapy; Z82.49 Family history of ischemic heart disease and other diseases of the circulatory system; Z82.3 Family history of stroke

== ENCOUNTER → 2018-07-26 | Outpatient (CLI) | payer OTHER ==
[~2018-07-26] VITALS: Ht 160 cm; Wt 120.2 kg
[~2018-07-26] MED LIST changes: +ADULT LOW DOSE81 MG PO; +ALDACTONE50 MG PO; +AMPICILLIN SODIU2 GM IV; +APAP650 PO; +CIPRO500 MG PO; +COLACE100 MG PO; +ENOXAPARIN100 MG/11 SUBQ; +ENOXAPARIN80 MG/0.8 SUBQ; +FLEXERIL PO; +GENTAMICIN60 MG/6 ML IV; +IRON325 PO; +LASIX 40 MG TAB40 M2 PO; +LEXAPRO 10 MG T10 M2 PO; +MIDODRINE HCL 55 M1 PO; +MIRALAX17 GM PO; +SYNTHROID25 MC1 PO
[2018-07-26 10:26] VITALS: BP 102/46
[2018-07-26 10:28] LABS: HEMATOCRIT 26.6 % (37.0-47.0); HEMOGLOBIN 8.4 gm/dL (12.0-15.0); MCH 26.9 pg (26.0-34.0); MCHC 31.6 g/dL (28.0-37.0); MCV 85.1 fL (80.0-100.0); MPV 7.9 fl. (7.2-11.1); RBC 3.13 mil/uL (4.20-5.00); RDW-CV 17.2 % (10.5-14.5); WBC 6.1 thou/uL (4.0-11.0)
[2018-07-26 10:34] LABS: CALCIUM 7.9 mg/dL (8.5-10.1); CREATININE 1.1 mg/dL (0.6-1.3); POTASSIUM 4.3 mmol/L (3.5-5.1)
[2018-07-26 10:36] LABS: APTT 32.3 Seconds (25.0-31.3); INR 1.4; PROTIME 14.2 Seconds (9.20-11.50)
[2018-07-26 10:39] LABS: ALBUMIN 3.2 g/dL (3.4-5.0); TOTAL BILIRUBIN 0.7 mg/dL (<0.1-1.0); TOTAL PROTEIN 6.9 g/dL (6.4-8.2)
[2018-07-26 13:10] VITALS: BP 125/59
[2018-07-26 13:30] VITALS: BP 125/62
[2018-07-26 14:23] VITALS: BP 114/65
--- NOTE | 2018-08-15 17:08 | PATH ---
[place] [address] PATHOLOGY RPT PROCEDURE Name: NIMCO ADAM Room: [facility] Sunil.#: [id number] Admission: 07/26/18 Date of : 50 Discharge: Report #: [id number] Path Case #: [id number] [facility] Accession Number: [id number] . 01 Material submitted: . LIVER . 01 Clinical history: . Alcohol liver disease (per Dr. Henley' H and P dated 07/19/2018): Chronic alcohol use with daily use, ischemic cardiomyopathy with EF 40%, ascites of uncertain origin - cardiogenic? liver?, rheumatoid arthritis, diabetes mellitus, acute on chronic renal failure, CT scan showing large liver without any evidence for an enlarged spleen or any ascites. . (07/19/19 - 07/22/2018) Serum iron 302 (50-175 uG/dL), TIBC 598 (250 to 450 uG/dL), percent saturation 51 (20 - 39%), ferritin 27 (8 - 388 ng-nLN), T-bili 0.7, AST 35, ALT 14, alkaline phosphatase 95, NT-ProBNP 1,342, hepatitis A, B, ad C - negative for active hepatitis. . . 02 Diagnosis: Liver biopsy: - Benign liver with mild sinusoidal dilatation and congestion suggesting venous congestion and/or outflow obstruction, with focal bridging fibrosis. See comment. [facility]/07/31/2018 . 02 Comment: Sections of the liver show near absent steatosis nor are features of alcoholic liver disease readily apparent in that there is no Mary's hyaline or significant inflammation present. Sinusoids are focally dilated generally in a centrilobular but also scattered periportal pattern with some/focal areas noted to be filled with blood. Portal tracts are essentially unremarkable. A panel of properly controlled special stains performed on each of cassettes A1 through A3 all show the following results: . Iron: No increase PAS with and without diastase: No positive globules Reticulin and trichrome: Highlights focal bridging fibrosis without cirrhosis. . This case will be forwarded to the [facility] Department of Hepatopathology in consultation and an addendum report will be issued. (MARYLOU:[facility] 07/31/2018) . 02 [place] [address] PATHOLOGY RPT PROCEDURE Name: NIMCO ADAM Room: [facility] Filiberto#: [id number] Admission: 07/26/18 Date of : 50 Discharge: Report #: [id number] Path Case #: [id number] Addendum: . Special studies report received from [facility] [address] , [place] [address], on case [id number], labeled with their number [id number], dated 08/03/2018. . INTERPRETATION . FINAL DIAGNOSIS: Liver, needle biopsy ([id number]; 07/27/2018)): Zone 3 sinusoidal dilatation, congestion with zone 3 pericellular fibrosis, periportal fibrosis, and focal bridging (stage 2-3 of 4), features consistent with venous outflow impairment. (See comment.) . COMMENT: The liver needle biopsy is adequate with more than 15 portal tracts. The portal tracts show mild focal chronic inflammation and mild to moderate bile ductular proliferation. No interface activity is identified. No noncaseating granulomas or florid bile duct lesions are present. The liver parenchyma shows zone 3 sinusoidal dilatation with congestion. No significant steatosis, hepatocellular ballooning, or Mary bodies are identified. Trichrome stain demonstrates zone 3 pericellular fibrosis and periportal and focal bridging fibrosis. No hemosiderosis is present on iron stain. No cytoplasmic globules are present on the PAS-D stain. . This is a 68-year-old female with a history of chronic alcohol use, ischemic cardiomyopathy with EF 40%, rheumatoid arthritis, diabetes, and acute on chronic renal failure. She also has negative viral serologies for hepatitis A, B, and C. Her liver function tests on 07/22/2018 showed total bilirubin 0.7, AST 35, ALT 14, and alkaline phosphatase 95. . The main histologic findings present on this biopsy are most consistent with venous outflow impairment such as due to right heart failure or Budd-Chiari syndrome, and clinical correlation is required. If the possibility of venous outflow impairment has been excluded clinically, these histologic findings can also be seen in drug-induced liver injury, portal vein thrombosis, nodular regenerative hyperplasia, and in patients with systemic granulomatous inflammatory disorder. The patient's history of chronic alcohol use is noted; however, there are no histologic findings to indicate the presence of fatty liver disease or steatohepatitis. . Thank you for sharing this case with me. Your submitted material is enclosed. If you have any questions, please do not hesitate to reach me at [phone]. . A comprehensive review of records that included Clinical Notes and Lab Results was performed to assist in the diagnostic assessment of the case. . Report Electronically Signed by: Ramón Mccracken M.D., Ph.D., 1-[address]124 [place] [address] PATHOLOGY RPT PROCEDURE Name: NIMCO ADAM Room: [facility]#: [id number] Admission: 07/26/18 Date of : 50 Discharge: Report #: [id number] Path Case #: [id number] . I verify that I have examined all relevant slides/materials for the specimen(s) and rendered or confirmed the diagnosis. . MATERIAL RECEIVED: . A. [id number]; Liver 18 stained slides, 1 block . . A complete copy of the report is on file. . . Professional services performed by [address] [address]. Technical services performed by [facility] [address] [facility], [facility] [address], [place] [address]. . (PAVAN ; 08/14/2018) QMS/08/14/2018 Addendum Electronically Signed by Jones Rodríguez MD, Pathologist . 02 Electronically signed: . Jnoes Rodríguez MD, Pathologist NPI- [id number] . 01 Gross description: . Received in formalin labeled "Nimco Adam, liver," are 4 distinct needle cores of norris soft tissue ranging from 0.7 to 1.1 cm in length and measuring less than 0.1 cm each in diameter. The specimen is submitted entirely in cassette A1 through A3. (TSD; 07/27/2018) TOB/TOB . 02 Pathologist provided ICD-10: K76.1 . 02 CPT . 614480, 410449, 920893, 829309, 795598, 453630 Specimen Comment: A courtesy copy of this report has been sent to Specimen Comment: [phone], , . Specimen Comment: [id number] Performed at: [address], [place], [place] [id number] MD Román Winston MD Phone: [phone] Performed at: 02 [facility] [address], [place], [place] [id number] MD Jones Rodríguez MD Phone: [phone]
== END | disposition home or self-care (01) ==
LOC: M.INT 09:09
PROVIDERS: Radiology Diagnostic Radiology
DX: K74.60 Unspecified cirrhosis of liver (principal); I25.5 Ischemic cardiomyopathy; R18.8 Other ascites; M06.9 Rheumatoid arthritis, unspecified; E11.22 Type 2 diabetes mellitus with diabetic chronic kidney disease; N18.9 Chronic kidney disease, unspecified

== ENCOUNTER → 2018-08-01 | Outpatient (CLI) | payer OTHER ==
[2018-08-01 13:57] LABS: CALCIUM 8.4 mg/dL (8.5-10.1); CREATININE 1.3 mg/dL (0.6-1.3); POTASSIUM 3.7 mmol/L (3.5-5.1)
== END ==
LOC: M.LAB 13:28
PROVIDERS: Internal Medicine Cardiovascular Disease
DX: I11.0 Hypertensive heart disease with heart failure (principal); I50.42 Chronic combined systolic (congestive) and diastolic (congestive) heart failure; E11.9 Type 2 diabetes mellitus without complications; I48.91 Unspecified atrial fibrillation; J44.9 Chronic obstructive pulmonary disease, unspecified; K21.9 Gastro-esophageal reflux disease without esophagitis; M06.9 Rheumatoid arthritis, unspecified; E78.5 Hyperlipidemia, unspecified

== ENCOUNTER 2018-10-04 12:09 | Inpatient (IN) | payer OTHER ==
[~2018-10-04] VITALS: Ht 160 cm; Wt 70.9 kg
--- NOTE | ~2018-10-04 | CON ---
[address] [address] CONSULTATION Name: CIRILO COX Room: [address] IN .R.#: [id number] Admission: 10/04/18 Attend Phys: Regis Lua MD Discharge: Date of : 50 Report #: [id number] THIS REPORT FOR: //name// CC: Regis Rodriguez DATE OF SERVICE: 10/06/2018 INTRODUCTION: This is a 68-year-old female who was admitted to the Emergency Department today because of being confused and memory loss and generalized weakness. I am asked to see her for her left fourth and fifth digit wounds. The patient says she has had a fourth interspace wound for some time. She has been treating with local treatments such as spreading the toes apart and local dressings. It is painful, has been there at least 3-4 months. PAST MEDICAL HISTORY: Is well documented in the chart. She has a history of mitral aortic artificial heart valve replacements in 2005, hypertension, GERD, COPD, back surgery, rheumatoid arthritis, hyperlipidemia, DVT, history of AFib, history of diabetes and cardiomegaly. Diabetes is doing better and she does not need medications. MEDICATIONS: Her medications are listed in the chart and have been reviewed. She is taking vancomycin and Zosyn, levothyroxine, pravastatin, carvedilol, omeprazole, cyclobenzaprine, spironolactone, warfarin and midodrine. ALLERGIES: No known drug allergies. FAMILY HISTORY: Unremarkable. SOCIAL HISTORY: No history of tobacco or drug use and occasional alcohol. REVIEW OF SYSTEMS: Noncontributory. PHYSICAL EXAMINATION: Upper extremities are being done by the hospitalist. Lower extremities show she has normal neurovascular status with palpable dorsalis pedis pulse. On the fourth digit, left foot, she has a small wound present with some maceration in the inner space. The fifth digit has a purplish red color [place] [address] CONSULTATION Name: CIRILO COX Room: [address] IN [facility].#: [id number] Admission: 10/04/18 Attend Phys: Regis Lua MD Discharge: Date of : 50 Report #: [id number] erythematous in the last couple of days. X-rays are not available. ASSESSMENT: The patient has a wound, fourth interspace and minor wound what looked like a significant infection at the fifth digit. Plan today is to get an x-ray of his foot to rule out any possibility of bone involvement since the wound has been quite some time. We will also use this as comparison for a later date and also get bilateral views to compare the views today since this might be a minimal change in the bone. Most likely, this will be an outpatient treatment. A postop shoe will be helpful at this point, but no pressure to the fourth toe. I explained this to her several times before and she understood. The possibility of an arthroplasty to take pressure off the fourth toe by taking the head of the proximal phalanx out to make the fifth toe not so an adductovarus. Thank you for the consult and I will be followed up with the x-rays. By: 02 25Jayden Valera, LISSETTE /nt
[~2018-10-04 12:09] MED LIST changes: -ADULT LOW DOSE81 MG PO; -AMPICILLIN SODIU2 GM IV; -APAP650 PO; -CIPRO500 MG PO; -COLACE100 MG PO; -GENTAMICIN60 MG/6 ML IV; -MIRALAX17 GM PO
[2018-10-04] MEDS ORDERED: FUROSEMIDE 40 M40 M1 PO (12:21)
[2018-10-04 12:22] VITALS: BP 125/59
--- NOTE | 2018-10-04 13:31 | NUR ---
HERMES NOTIFIED UPON PT RETURN FROM CT. PT CONNECTED TO MONITOR AND O2
[2018-10-04 13:56] LABS: HEMATOCRIT 38.4 % (37.0-47.0); HEMOGLOBIN 12.3 gm/dL (12.0-15.0); MCH 27.2 pg (26.0-34.0); MCHC 32.1 g/dL (28.0-37.0); MCV 84.9 fL (80.0-100.0); MPV 9.4 fl. (7.2-11.1); NUCLEATED RBCS 0 /100WBC; PLATELET COUNT* 213 thou/uL (150-400); RBC 4.52 mil/uL (4.20-5.00); RDW-CV 17.3 % (10.5-14.5); WBC 10.8 thou/uL (4.0-11.0)
[2018-10-04 14:01] LABS: CALCIUM 8.6 mg/dL (8.5-10.1); CREATININE 1.3 mg/dL (0.6-1.3); POTASSIUM 3.5 mmol/L (3.5-5.1)
[2018-10-04 14:01] LABS: URINE BILIRUBIN NEGATIVE (Negative); URINE BLOOD 1+ (Negative); URINE CLARITY CLEAR; URINE COLOR YELLOW; URINE GLUCOSE-RANDOM NEGATIVE (Negative); URINE KETONES NEGATIVE (Negative); URINE LEUKOCYTES-REFLEX 1+ (Negative); URINE NITRITE-REFLEX NEGATIVE (Negative); URINE PROTEIN TRACE (Negative)
[2018-10-04 14:05] LABS: ALBUMIN 3.5 g/dL (3.4-5.0); MAGNESIUM 1.4 mg/dL (1.8-2.4); TOTAL BILIRUBIN 1.8 mg/dL (<0.1-1.0); TOTAL PROTEIN 7.8 g/dL (6.4-8.2)
[2018-10-04 14:12] LABS: BACTERIA-REFLEX None Seen /HPF (None Seen); CASTS None Seen /LPF (None Seen); CRYSTALS None Seen /LPF (None Seen); SQUAMOUS 4-10 Moderate /LPF (0-3); URINE RBC 0-2 Rare /HPF (0-2); URINE WBC-REFLEX 0-5 Rare /HPF (0-5)
[2018-10-04 14:19] LABS: ABSOLUTE LYMPHOCYTES 0.8 thou/uL (0.8-5.3); ABSOLUTE MONOCYTES 0.3 thou/uL (0.0-1.2); ABSOLUTE NEUTROPHILS 9.7 thou/uL (1.6-8.1); PLATELET ESTIMATE ADEQUATE; TOXIC GRANULATION 2+
[2018-10-04 15:42] LABS: APTT 34.2 Seconds (25.0-31.3); INR 1.8; PROTIME 18.3 Seconds (9.20-11.50)
[2018-10-04 16:10] VITALS: BP 110/62
[2018-10-04 16:28] VITALS: BP 96/43
--- NOTE | 2018-10-04 18:24 | NUR ---
PT ADMITTED TO UNIT AROUND 1600 PT IS ALERT AND ORIENTED X 4 PT IS FORGETFUL AND SLOW TO ANSWER, PT IS UP WITH ASSIST X 1 PT IS A FALL RISK BED ALARM IS ON, PHYSICIAN ORDERED NIH SCALE ON ADMISSION AND DISCHARGE NIH DONE ON ADMISSION, PT HAS FLUIDS RUNNING AND ANTIBIOTICS, PT IS SB ON THE MONITOR PT STATES BLOOD PRESSURE AND HEART RATE RUN LOW THIS IS PT BASELINE, WILL CONTINUE TO MONITOR
[2018-10-04 20:20] VITALS: BP 103/45
[2018-10-05] VITALS: BP 114/58
[2018-10-05 04:00] VITALS: BP 145/70
[2018-10-05 05:01] LABS: ABSOLUTE BASOPHILS 0.1 thou/uL (0.0-0.2); ABSOLUTE EOSINOPHILS 0.1 thou/uL (0.0-0.7); ABSOLUTE LYMPHOCYTES 0.9 thou/uL (0.8-5.3); ABSOLUTE MONOCYTES 0.8 thou/uL (0.0-1.2); ABSOLUTE NEUTROPHILS 7.2 thou/uL (1.6-8.1); BASOPHILS 0.7 %; EOSINOPHILS 0.6 %; HEMATOCRIT 38.3 % (37.0-47.0); HEMOGLOBIN 12.4 gm/dL (12.0-15.0); LYMPHOCYTES 10.2 %; MCH 27.4 pg (26.0-34.0); MCHC 32.3 g/dL (28.0-37.0); MCV 84.8 fL (80.0-100.0); MONOCYTES 8.6 %; MPV 9.2 fl. (7.2-11.1); NUCLEATED RBCS 0 /100WBC; PLATELET COUNT* 185 thou/uL (150-400); POLYS 79.9 %; RBC 4.51 mil/uL (4.20-5.00); RDW-CV 17.5 % (10.5-14.5)
[2018-10-05 05:14] LABS: CALCIUM 8.7 mg/dL (8.5-10.1); CREATININE 1.2 mg/dL (0.6-1.3); INR 2.1; POTASSIUM 3.1 mmol/L (3.5-5.1); PROTIME 21.4 Seconds (9.20-11.50)
[2018-10-05 05:30] LABS: CHOLESTEROL 103 mg/dL (<200); HDL CHOLESTEROL 22 mg/dL (>40); LDL CHOLESTEROL 59 mg/dL (<100); TC:HDL 4.7 Ratio (Not establshd); TRIGLYCERIDE 114 mg/dL (<150); VLDL 23 mg/dL (<40)
[2018-10-05 05:39] LABS: SERUM ASSESSMENT CLEAR
--- NOTE | 2018-10-05 06:18 | NUR ---
ASSUMED PT CARE At 1930, pt is a&ox4, pt is tracing sb on the monitor, on 2l nc. pt denies any pain or needs at this time. pt slept on and off all night. bed in low position, call light in reach, bed alarm on, yellow arm band and socks in place. hourly rounding completed for pt safety.
[2018-10-05 08:00] VITALS: BP 119/53
--- NOTE | 2018-10-05 11:38 | NUR ---
CALLED PHARMACY FOR THIAMINE MARYLU IS TO CHECK OUT AND GET TO ME.
--- NOTE | 2018-10-05 11:59 | NUR ---
Pt is A&O. Resides at home with her . Independent with ADLs. No DME. No home o2. No hx of HH or SNF. Goal is home at dc, no needs anticipated. Following.
[2018-10-05 12:00] VITALS: BP 105/44
--- NOTE | 2018-10-05 15:56 | NUR ---
called jennifer in pharmacy ok to hang [facility] tomorrow.
[2018-10-05 16:02] VITALS: BP 116/65
--- NOTE | 2018-10-05 17:30 | NUR ---
ASSUMED PT CARE. REPORT FROM NADIRA WU
[2018-10-05 20:10] VITALS: BP 124/62
[2018-10-06] VITALS: BP 131/53
[2018-10-06 04:00] VITALS: BP 120/49
[2018-10-06 05:08] LABS: PROTIME 37.8 Seconds (9.20-11.50)
[2018-10-06 05:23] LABS: INR 3.7
--- NOTE | 2018-10-06 05:42 | NUR ---
ASSUMED PT CARE AT 1930, PT IS A&OX4, PT IS CONFUSED AT TIMES, BUT IS EASILY REDIRECTED. PT IS TRACING SB ON THE MONITOR,ON 2L NC SATTING MID TO HIGH 90'S. PT IS UP WITH ONE TO THE BR. PT DENIES ANY PAIN OR NEEDS AT THIS TIME. BED IN LOW POSITION, CALL LIGHT IN REACH, BED ALARM ON, YELLOW ARM BAND AND SOCKS IN PLACE. HOURLY ROUNDING COMPLETED OFR PT SAFETY.
[2018-10-06 08:00] VITALS: BP 123/58
--- NOTE | 2018-10-06 08:46 | NUR ---
ASSUMED CARE OF PT AT 0730. PT RESTING IN CHAIR WAITING FOR BREAKFAST. AT BEDSIDE. PT A&0X4, FORGETFUL AT TIMES. PT TRACING SB WITH BBB ON THE GARMENT SUPERVISOR. ON 2L NC SAT 98%. PT DENIES ANY PAIN OR SHORTNESS OF BREATH AT THIS TIME. PT UP SBA TO BATHROOM. PT GOAL FOR TODAY IS CONTINUE NEURO WORK UP, MONITOR ORIENTATION, INCREASE ACTIVITY AND DISCHARGE PLANNING. AM ASSESSMENT CHARTED. MEDICATIONS PER MAR. PT REPOSITIONS SELF. HOURLY ROUNDING OBSERVED. BED IN LOW POSITION. CALL LIGHT WITHIN REACH. WILL CONTINUE PLAN OF CARE.
--- NOTE | 2018-10-06 11:01 | CON ---
[address] [address] CONSULTATION Name: CIRILO COX Room: [address] IN .R.#: [id number] Admission: 10/04/18 Attend Phys: Regis Lua MD Discharge: Date of : 50 Report #: [id number] THIS REPORT FOR: //name// CC: Regis Prasad [facility] DATE OF SERVICE: 10/05/2018 ATTENDING PHYSICIAN: Regis Lua M.D. REASON FOR EVALUATION: Gram-positive septicemia. 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 In addition, she has had some dyspnea, abnormal gait. It is not entirely clear if she has had fever. She has admitted to some sweats that had been fairly profound over the course of last month, intermittent poor p.o. intake. During evaluation blood cultures were collected, now 2/2 with Gram-positive cocci. Denies any significant gastrointestinal-related complaints. She was empirically started on therapy with vancomycin and ceftriaxone. ALLERGIES: None known. MEDICATIONS: Include vancomycin, aspirin, furosemide, ferrous sulfate, spironolactone, escitalopram, levofloxacin, pantoprazole, midodrine, atorvastatin, ceftriaxone, warfarin, cyclobenzaprine, carvedilol, hydralazine, docusate sodium, acetaminophen. PAST MEDICAL HISTORY: Above noted mitral and aortic valve replacements 2006, hypertension, reflux, COPD, rheumatoid arthritis, hyperlipidemia, history of DVTs, atrial fibrillation, has cardiomyopathy with congestive heart failure, history of diabetes and depression. SOCIAL HISTORY: Nonsmoker, occasional ethanol. FAMILY HISTORY: Noncontributory. REVIEW OF SYSTEMS: Otherwise unremarkable except for the above. PHYSICAL EXAMINATION: GENERAL: She appears somewhat chronically ill, undernourished. She is in ehta-so-siswzpmq distress. She is at least mildly encephalopathic. VITAL SIGNS: Temperature 98, pulse 61, respirations 17, blood pressure 116/65[place] [address] CONSULTATION Name: CIRILO COX Room: [address]#: [id number] Admission: 10/04/18 Attend Phys: Regis Lua MD Discharge: Date of : 50 Report #: [id number] SKIN: Warm, dry, no rashes. HEENT: No conjunctivitis. Oropharynx without lesions. NECK: Supple. LUNGS: Diminished breath sounds. HEART: Regular, has the prosthetic valve clicks. ABDOMEN: Distended, mildly firm. There are no overt peritoneal signs. Really nontender. GENITOURINARY: Deferred. RECTAL: Deferred. LABORATORY DATA: MRI of the head showed generalized parenchymal volume loss. Blood cultures 2/2 positive from 10/04/2018 with Gram-positive cocci. PT of 21.4, INR of 2.1. CRP of 146.5. Electrolytes: Sodium 133, potassium 3.1, chloride 94, bicarbonate is 27, BUN and creatinine 28 and 1.2, anion gap of 12 and estimated GFR 45. CBC: White count 9.0, H and H 12.4 and 38.2, platelets of 185. Hemoglobin A1c of 7. Carotids showed no hemodynamically significant internal carotid stenosis. Sed rate of 28. Chest x-ray: Mild pulmonary venous congestion, perihilar and basilar pulmonary infiltrates, suggests more edema. Urinalysis unremarkable. Liver functions unremarkable. Albumin of 3.5, total protein 7.8. Estimated GFR 41. ASSESSMENT: Gram-positive septicemia of uncertain etiology, certainly at high risk for prosthetic valve endocarditis. Her signs and symptoms have been going on for perhaps longer than appreciated. We will go ahead and start with a transthoracic echo, may need a ESTEFANY. We will await results of the cultures, likely will need followup collected tomorrow morning. Continue the combination of ceftriaxone and vancomycin. <ELECTRONICALLY SIGNED> By: Steven Carnes MD 10/06/18 1101 1641 [id number] Carnes MD /nt
[2018-10-06 12:00] VITALS: BP 116/74
[2018-10-06 14:00] VITALS: BP 124/50
--- NOTE | 2018-10-06 15:08 | 2DMMODE ---
[place] [address] 2 D/M-MODE ECHOCARDIOGRAM Name: CIRILO COX Room: [address] IN [facility]#: [id number] Admission: 10/04/18 Attend Phys: Regis Lua, Discharge: Date of : 50 Date of Service: 10/06/18 1507 Report #: [id number] THIS REPORT FOR: //name// APPROVED REPORT Study performed: 10/06/2018 10:40:31 EXAM: Comprehensive 2D, Doppler, and color-flow Echocardiogram Patient Location: In-Patient Room #: 220 Status: routine BSA: 1.75 HR: 73 bpm BP: 123/58 mmHg Rhythm: NSR Other Information Study Quality: Good Indications Sepsis Mitral and aortic prosthetic valves 2D Dimensions IVSd: 13.07 (7-11mm) LVOT Diam: 24.37 (18-24mm) LVDd: 49.94 mm PWd: 11.89 (7-11mm) Ascending Ao: 34.06 (22-36mm) LVDs: 43.73 (25-40mm) Aortic Root: 41.39 mm Volumes Left Atrial Volume (Systole) LA ESV Index: 89.70 mL/m2 Aortic Valve AoV Peak Kendall.: 2.81 m/s AO Peak Gr.: 31.61 mmHg LVOT Max P.36 mmHg AO Mean Gr.: 17.48 mmHg LVOT Mean P.83 mmHg LVOT Max V: 0.92 m/s AO V2 VTI: 54.88 cm LVOT Mean V: 0.63 m/s KATINA (VTI): 1.57 cm2 LVOT V1 VTI: 18.42 cm Mitral Valve MV Mean Gr.: 3.70 mmHg E/A Ratio: 3.74 MV Decel. Time: 248.28 [place] [address] 2 D/M-MODE ECHOCARDIOGRAM Name: CIRILO COX Room: [address] IN .R.#: [id number] Admission: 10/04/18 Attend Phys: Regis Lua, Discharge: Date of : 50 Date of Service: 10/06/18 1507 Report #: [id number] MV E Max Kendall.: 1.67 m/s MV PHT: 72.00 ms MVA (PHT): 3.06 cm2 TDI E/Lateral E': 18.56 E/Medial E': 23.86 Medial E' Kendall.: 0.07 m/s Lateral E' Kendall.: 0.09 m/s Pulmonary Valve PV Peak Kendall.: 1.05 m/s PV Peak Gr.: 4.42 mmHg Tricuspid Valve RAP Estimate: 15.00 mmHg TR Peak Gr.: 49.56 mmHg RVSP: 65.00 mmHg PA Pressure: 65.00 mmHg Left Ventricle The left ventricle is normal size. There is global hypokinesis of the left ventricle. Mild concentric left ventricular hypertrophy. Left ventricular systolic function is moderately decreased. LVEF is 35-40%. The left ventricular diastolic function is normal. Right Ventricle Right ventricle is dilated. Right ventricle is mildly hypokinetic. Atria Left atrium is severely dilated. Right atrium is dilated. Aortic Valve Mechanical aortic valve is present. Trace aortic regurgitation. Mild aortic stenosis. Mitral Valve There is a mechanical mitral valve. There is no mitral valve regurgitation noted. No evidence of mitral valve stenosis. Tricuspid Valve The tricuspid valve is normal in structure. Moderate tricuspid regurgitation. estimated pa pressure 60 mm Hg Pulmonic Valve The pulmonary valve is normal in structure. [place] [address] 2 D/M-MODE ECHOCARDIOGRAM Name: CRYSTAL COXLAUREN Diaz Room: [address] IN [facility]#: [id number] Admission: 10/04/18 Attend Phys: Regis Lua, Discharge: Date of : 50 Date of Service: 10/06/18 1507 Report #: [id number] Great Vessels Aortic root is mildly dilated. IVC is dilated and collapses <50% with inspiration. Pericardium There is no pericardial effusion. <Conclusion> Mild concentric left ventricular hypertrophy. LVEF is 35-40%. Right ventricle is dilated. Left atrium is severely dilated. Mechanical aortic valve is present. Trace aortic regurgitation. Mild aortic stenosis. There is a mechanical mitral valve. Moderate tricuspid regurgitation. estimated pa pressure 60 mm Hg <ELECTRONICALLY SIGNED> By: aGston Dallas MD, FACC 10/06/18 1507 150 150 Gaston Dallas MD, FACC /INF
--- NOTE | 2018-10-06 17:40 | NUR ---
NO ACUTE CHANGES THROUGHOUT SHIFT. REFER TO CHARTING. PT HAD ECHO TODAY-REFER TO RESULTS. PT WORKED WITH PHYSICAL AND OCCUPATIONAL THERAPY TODAY-TOLERATED WELL. EVENING DOSE OF COUMADIN HELD DUE TO INR OF 3.7. PT MADE MED SURGICAL STATUS. CONTINUES TO BE ON 2L NC SAT UPPER 90'S. DENIES ANY SHORTNESS OF BREATH OR PAIN THROUGHOUT AFTERNOON. PODIATRY CONSULT IN PLACE. PT PROGRESSING TOWARDS GOALS. UP TO CHAIR FOR ALL MEALS. MEDICATIONS PER MAR. PT REPOSITIONS SELF. HOURLY ROUNDING OBSERVED. BED IN LOW POSITION. FALL PRECAUTIONS IN PLACE. CALL LIGHT WITHIN REACH. WILL CONTINUE PLAN OF CARE.
[2018-10-06 20:04] VITALS: BP 110/43
[2018-10-07] VITALS: BP 122/50
[2018-10-07 04:52] LABS: HEMATOCRIT 34.3 % (37.0-47.0); HEMOGLOBIN 11.1 gm/dL (12.0-15.0); MCH 27.2 pg (26.0-34.0); MCHC 32.5 g/dL (28.0-37.0); MCV 83.9 fL (80.0-100.0); MPV 9.3 fl. (7.2-11.1); RBC 4.09 mil/uL (4.20-5.00); RDW-CV 17.1 % (10.5-14.5); WBC 7.6 thou/uL (4.0-11.0)
[2018-10-07 04:57] LABS: PROTIME 52.2 Seconds (9.20-11.50)
[2018-10-07 05:03] LABS: CALCIUM 8.7 mg/dL (8.5-10.1); CREATININE 0.9 mg/dL (0.6-1.3); POTASSIUM 4.1 mmol/L (3.5-5.1)
[2018-10-07 05:21] LABS: INR 5.2
--- NOTE | 2018-10-07 08:14 | NUR ---
PT IS ABLE TO COMMUNICATE HER NEEDS TO STAFF EFFECTIVELY. SHE HAS DENIED THE NEED FOR PAIN MEDICATION UP TO THIS TIME. PT UP TO THE BATHROOM WITH SBA, CALLS APPROPRIATELY,AND KEEPS OXYGEN ON THE ENTIRE TIME.
[2018-10-07 09:00] VITALS: BP 129/51
--- NOTE | 2018-10-07 10:18 | EKG ---
[place] [address] ELECTROCARDIOGRAM REPORT Name: CIRILO COX Room: [address] ADM IN M.R.#: [id number] Admission: 10/04/18 Attend Phys: Regis Lua MD Discharge: Date of : 50 Report #: [id number] THIS REPORT FOR: //name// [facility] Test Date: 2018-10-07 Test Time: 07:48:00 Pat Name: CIRILO COX Department: Room: [address] Gender: F Distributor Publications: SEAN : 1950 Requested By: Jewels Urbina Order Number: [id number] Reading MD: Gaston Dallas Measurements Intervals Mission Rate: 60 P: GA: QRS: 157 QRSD: 173 T: 62 QT: 504 QTc: 504 Interpretive Statements atrial fibrillation LBBB Compared to ECG 07/19/2018 10:17:38 Ventricular premature complex(es) no longer present Electronically Signed On 10-07-2018 10:18:06 ROLLED SEAT TRIMMER by Gaston Dallas [email or web address] <ELECTRONICALLY SIGNED> By: Gaston Dallas MD, [facility] 10/07/18 1018 Gaston Dallas MD, [facility] /EPI
--- NOTE | 2018-10-07 11:16 | NUR ---
ASSUMED PT CARE AT 0700 PT IS ALERT AND ORIENTED X 3-4 PT IS FORGETFUL PT STATES SLIGHT PAIN DID NOT WANT PAIN MEDS PT DENEIS SOA ON 2L/NC, PT IS UP WITH SBA PT CAN GET UP AD ABDIRASHID, PT IS MEDICAL SURGICAL STATUS, PHYSICIAN TOOK PT OFF OXYGEN WILL MONITOR SATS, PT PROGRESSING TOWARDS GOALS, WILL CONTINUE TO MONITOR
[2018-10-07 15:45] VITALS: BP 117/62
[2018-10-07 20:12] VITALS: BP 124/49
[2018-10-07 23:58] VITALS: BP 133/77
[2018-10-08 04:37] LABS: HEMATOCRIT 36.8 % (37.0-47.0); HEMOGLOBIN 11.6 gm/dL (12.0-15.0); MCH 26.5 pg (26.0-34.0); MCHC 31.5 g/dL (28.0-37.0); MCV 84.2 fL (80.0-100.0); MPV 8.9 fl. (7.2-11.1); RBC 4.38 mil/uL (4.20-5.00); RDW-CV 17.4 % (10.5-14.5)
[2018-10-08 04:44] LABS: CREATININE 0.9 mg/dL (0.6-1.3); MAGNESIUM 1.8 mg/dL (1.8-2.4)
[2018-10-08 04:57] LABS: PROTIME 31.2 Seconds (9.20-11.50)
[2018-10-08 05:00] LABS: INR 3.1
[2018-10-08 05:20] LABS: URINE BILIRUBIN NEGATIVE (Negative); URINE BLOOD 1+ (Negative); URINE CLARITY CLEAR; URINE COLOR YELLOW; URINE GLUCOSE-RANDOM NEGATIVE (Negative); URINE KETONES NEGATIVE (Negative); URINE LEUKOCYTES-REFLEX 1+ (Negative); URINE NITRITE-REFLEX NEGATIVE (Negative); URINE PROTEIN TRACE (Negative); URINE UROBILINOGEN 0.2 E.U./dl (0.2-1.0)
[2018-10-08 05:33] LABS: SQUAMOUS >10 Many /LPF (0-3); URINE WBC-REFLEX 6-15 Few /HPF (0-5)
[2018-10-08 05:34] LABS: BACTERIA-REFLEX >30 Many /HPF (None Seen); CASTS None Seen /LPF (None Seen); CRYSTALS None Seen /LPF (None Seen); MUCUS 4-6 Moderate strn/LPF (None Seen); URINE RBC 3-10 Few /HPF (0-2)
--- NOTE | 2018-10-08 07:52 | NUR ---
PT IS ABLE TO COMMUNICATE HER NEEDS TO STAFF EFFECTIVELY. SHE HAS DENIED THE NEED FOR PAIN MEDICATION UP TO THIS TIME. INR DECREASING AT MOST RECENT CHECK. POSSIBLE DISCHARGE TOMORROW.
[2018-10-08 08:00] VITALS: BP 113/39
--- NOTE | 2018-10-08 10:57 | NUR ---
ASSUMED PT CARE AT 0700 PT IS ALERT AND ORIENTED X 3-4 PT IS FORGETFUL, PT DENIES PAIN OR SOA ON RA, PT IS UP SBA PT IS NOT A FALL RISK, PT IS MEDICAL SURGICAL STATUS, PT IS CLEARED FOR DISCHARGE BY HOSPITALIST INFECTIOUS DISEASE PAGED FOR DISCHARGE CLEARANCE AWAITING CALL BACK, WILL CONTINUE TO MONITOR
[2018-10-08] MEDS ORDERED: ADULT LOW DOSE81 MG PO (11:05)
[2018-10-08] MEDS ORDERED: CIPRO500 MG PO (11:10)
[2018-10-08 14:00] VITALS: BP 120/50
--- NOTE | 2018-10-08 18:19 | NUR ---
ASSUMED CARE OF PATIENT AT 1415. AGREE WITH PREVIOUS NURSES CHARTING. ALERT AND ORIENTED X4. UP WITH STAND BY ASSIST IN ROOM. IV IS PATENT AND SALINE LOCKED. DENIES PAIN AND NAUSEA. VSS ON ROOM AIR. HOURLY ROUNDS HAVE BEEN MAINTAINED SINCE ARRIVING ON UNIT. CALL LIGHT IS WITHIN REACH. NURSING WILL CONTINUE TO MONITOR.
[2018-10-08 20:45] VITALS: BP 115/74
--- NOTE | 2018-10-09 03:41 | NUR ---
PATIENT HAVING A HARD TIME BREATHING AND COUGHING. RESPIRATIONS AROUND 27 AND LUNGS ARE COURSE AND WHEEZING HEARD. O2 SATURATION 88% ON RA. PATIENT PLACED ON 2L 02 VIA NASAL CANNULA AND 02 SATURATION NOW 94% TO 95% ON 2L. NOTIFIED VIA YOUCALLMD. WAITING FOR CALL BACK FROM PHYSICIAN. NEW IV INSERTED IN RIGHT FOREARM AND IS SALINE LOCKED AT THIS TIME. PATIENT STATES SHE NORMALLY TAKES BREATHING TREATMENTS AT HOME AND NONE ARE ORDERED AT THIS TIME. WILL INFORM OF PATIENT REQUESTING BREATHING TREATMENTS. PATIENT IS UP TO CHAIR IN ROOM AND BREATHING IS LESS LABORED AND IS BREATHING EASIER AND COLOR LOOKS MUCH BETTER. WILL CONTINUE WITH PLAN OF CARE AND NURSING TO MONITOR.
[2018-10-09 04:27] LABS: INR 2.4; PROTIME 24.9 Seconds (9.20-11.50)
--- NOTE | 2018-10-09 07:52 | NUR ---
PATIENT NOW BREATHING MUCH BETTER. NEW ORDERS WERE GIVEN FROM DR. AARON FOR CHEST X-RAY, BREATHING TX'S, AND IS. VSS ON 2L 02 VIA NASAL CANNULA. NO C/O PAIN DURING SHIFT. NEW IV INSERTED IN RIGHT HAND-SL. IV ABT GIVEN WITHOUT ANY ADVERSE SIDE EFFECTS NOTED. PATIENT INSTRUCTED TO USE CALL LIGHT WHEN NEEDING ASSISTANCE. HOURY ROUNDS MADE. WILL CONTINUE WITH PLAN OF CARE AND NURSING TO MONITOR.
[2018-10-09 09:00] VITALS: BP 112/56
[2018-10-09 16:00] VITALS: BP 125/53
--- NOTE | 2018-10-09 20:30 | NUR ---
PT ALERT AND ORIENTED TO SELF AND PLACE. FORGETFUL AND SLOW TO RESPOND AT TIMES. IV PATENT. DENIED ANY NAUSEA OR PAIN. OXYGEN @ 2 L/NC. PT WILL REMOVE CANNNULA AND FORGET TO PLACE BACK ON. AMBULATED WITH THERAPY DURING DAY. UP TO BR WITH SBA X 1. HOURLY ROUNDS MAINTAINED. CALL LIGHT WITHIN REACH.
[2018-10-09 20:56] VITALS: BP 112/42
[2018-10-10] VITALS (7 sets, daily range): BP systolic 92–126; BP diastolic 45–61
[2018-10-10 04:33] LABS: INR 2.5; PROTIME 25.5 Seconds (9.20-11.50)
[2018-10-10 04:36] LABS: HEMATOCRIT 34.3 % (37.0-47.0); HEMOGLOBIN 10.9 gm/dL (12.0-15.0); MCH 26.9 pg (26.0-34.0); MCHC 31.9 g/dL (28.0-37.0); MCV 84.4 fL (80.0-100.0); MPV 8.6 fl. (7.2-11.1); RBC 4.07 mil/uL (4.20-5.00); RDW-CV 17.6 % (10.5-14.5); WBC 9.6 thou/uL (4.0-11.0)
[2018-10-10 04:40] LABS: CALCIUM 9.1 mg/dL (8.5-10.1); MAGNESIUM 1.8 mg/dL (1.8-2.4)
--- NOTE | 2018-10-10 05:39 | NUR ---
ALERT AND ORIENTED. DENIES PAIN OR NAUSEA. UP TO BATHROOM IN ROOM WITH 1 ASSISTANCE, WALKER AND GAIT BELT. REMAINS ON O2 AT 2L/NC WITH O2 SAT 97%. BED ALARM ON WHILE IN BED. CALL LIGHT WITHIN REACH. PROGRESSING TOWARD DISCHARGE GOAL.
--- NOTE | 2018-10-10 12:37 | NUR ---
PT.TO HAVE ESTEFANY TODAY TO CHECK FOR VEGETATION ON HEART VALVES. TO MOVE TO TELE UNIT NOW DUE TO LOW HEART RATE AND LOWER BLOOD SUGAR,DROWSINESS. PT.STILL HOPES TO GO HOME WITH AT DISCHARGE,DEPENDING ON RESULTS OF TESTING.
--- NOTE | 2018-10-10 13:50 | NUR ---
PT ALERT AND ORIENTED X 3. FORGETFUL AT TIMES. DENIES NAUSEA AND PAIN. HAS BEEN NPO FOR PROCEDURE. WANTS TO EAT AND DRINK. IV PATENT. OXYGEN @ 2L/NC. PT HAS COUGH WITH YELLOW SPUTUM NOTED. LUNGS COARSE. HOURLY ROUNDS MAINTAINED. @ 1245, PT NOTED TO HAVE INCREASED LETHARGY. ACCUCHECK=92; VS-95/35-20-42-98.1-98% ON 2L/NC. PHYSICIAN NOTIFIED. PT TO TRANSFER TO TELEMETRY UNIT. REPORT TO ADELINE ON 2E. PT LEFT UNIT FOR ESTEFANY PROCEDURE BY BED @ 1407. PT TO TRANSFER TO ROOM 232 AFTER PRODECURE. BELONGINGS TAKEN TO ROOM 232.
--- NOTE | 2018-10-10 15:23 | TEE ---
[place] [address] TRANSESOPHAGEAL ECHOCARDIOGRAM Name: CIRILO COX Room: [address] IN [facility]#: [id number] Admission: 10/04/18 Attend Phys: Regis Lua, Discharge: Date of : 50 Date of Service: 10/10/18 1523 Report #: [id number] THIS REPORT FOR: //name// APPROVED REPORT Study performed: 10/10/2018 14:24:46 EXAM: Transesophageal Echocardiogram Patient Location: In-Patient Room #: 232 Status: routine BSA: 1.75 HR: 46 bpm BP: 116/54 mmHg Rhythm: NSR Indications Septicemia, positive blood cultures Echo Enhancing Agent Indication: Rule out Shunt Agent(s) / Amount(s) Used: Agitated Saline 10 cc Procedure After obtaining informed consent, patient underwent transesophageal echo in the [employer]. Type of Sedation : Conscious Sedation Sedation was administered by Patti Monae RN. Sedation start time: 1424 Case end Time: 144 Sedation was achieved intravenously with: Versed (2) Fentanyl (25) Transesophageal probe was inserted and advanced into esophagus without difficulty by Jean Forman MD, FACC. Echo enhancement indication: R/O Septal defect. Echo enhancement agent administered: Agitated Saline The ESTEFANY was performed without complications. Throughout the procedure, the blood pressure, pulse oximetry, cardiac rhythm, and rate were monitored. The patient tolerated the procedure without adverse effects. Recovery from conscious sedation was uneventful and vital signs were stable. Left Ventricle The left ventricle is normal size. There is normal LV segmental wall motion. There is normal left [place] [address] TRANSESOPHAGEAL ECHOCARDIOGRAM Name: CRYSTAL COXLAUREN Diaz Room: [address] IN [facility]#: [id number] Admission: 10/04/18 Attend Phys: Regis Lua, Discharge: Date of : 50 Date of Service: 10/10/18 1523 Report #: [id number] ventricular systolic function is moderate to severely decreased. No left ventricle thrombus noted on this study. LVEF is 40%. Right Ventricle The right ventricle is normal size. The right ventricular systolic function is normal. Atria Left atrium is severely dilated. Left atrial appendage free of thrombus, but there is spontaneous echo contrast present. negative bubble study for ASD or PFO Right atrium is dilated. Aortic Valve The aortic valve is normal in structure. Mechanical aortic valve is present. No aortic regurgitation is present. There is no aortic valvular vegetation. There is no aortic valvular stenosis. Mitral Valve The mitral valve is normal in structure. There is a mechanical mitral valve. Trace mitral regurgitation. There is no evidence of mitral valve vegetations. No evidence of mitral valve stenosis. Tricuspid Valve The tricuspid valve is not well visualized. Tricuspid valve leaflets are thickened but open well. Moderate tricuspid regurgitation. There is no tricuspid valve vegetations.But artifact from aortic and mitral prosthesis limited definition. Pulmonic Valve Pulmonic valve is not well visualized. There is no pulmonic valvular stenosis. There is no pulmonic valvular regurgitation. There is no pulmonic valve vegetations. Great Vessels The aortic root is normal in size. Pericardium There is no pericardial effusion. <Conclusion> LVEF is 40%. There is normal LV segmental wall motion. Left atrium is severely dilated. Right atrium is dilated. Mechanical aortic valve is present. There is no [place] [address] TRANSESOPHAGEAL ECHOCARDIOGRAM Name: CIRILO COX Room: [address] [place] ..#: [id number] Admission: 10/04/18 Attend Phys: Regis Lua, Discharge: Date of : 50 Date of Service: 10/10/18 1523 Report #: [id number] No aortic regurgitation is present. There is no evidence of mitral valve vegetations. There is a mechanical mitral valve. No evidence of mitral valve stenosis. Trace mitral regurgitation. Moderate tricuspid regurgitation. There is no tricuspid valve vegetations.But artifact from aortic and mitral prosthesis limited definition. negative bubble study for ASD or PFO Left atrium is severely dilated. Left atrial appendage free of thrombus, but there is spontaneous echo contrast present. <ELECTRONICALLY SIGNED> By: Jean Forman MD, FACC 10/10/18 1523 1523 1523 Jean Forman MD, FACC /INF
--- NOTE | 2018-10-10 15:54 | NUR ---
PT TRANSFERED TO UNIT AFTER PROCEDURE PT IS ALERT AND ORIENTED X3-4 PT IS FORGETFUL PT ABLE TO FOLLOW COMMANDS PERFORMED BEDSIDE SWALLOW ON PT AT 1525 PT PASSED GAVE PT FOOD AND FLUIDS, PT IS SLEEPY IS AROUSABLE ABLE TO TAKE MEDICATIONS, PT IS AFIB ON THE MONITOR, WILL CONTINUE TO MONITOR
[2018-10-11] VITALS: BP 120/48
[2018-10-11 04:00] VITALS: BP 126/48
[2018-10-11 06:32] LABS: HEMATOCRIT 32.7 % (37.0-47.0); HEMOGLOBIN 10.6 gm/dL (12.0-15.0); MCH 27.2 pg (26.0-34.0); MCHC 32.4 g/dL (28.0-37.0); MCV 83.9 fL (80.0-100.0); MPV 8.4 fl. (7.2-11.1); NUCLEATED RBCS 0 /100WBC; PLATELET COUNT* 309 thou/uL (150-400); RBC 3.89 mil/uL (4.20-5.00); RDW-CV 17.1 % (10.5-14.5); WBC 10.4 thou/uL (4.0-11.0)
[2018-10-11 06:33] LABS: INR 3.1; PROTIME 31.4 Seconds (9.20-11.50)
[2018-10-11 06:51] LABS: ALBUMIN 3.2 g/dL (3.4-5.0); CALCIUM 8.6 mg/dL (8.5-10.1); CREATININE 1.1 mg/dL (0.6-1.3); POTASSIUM 4.5 mmol/L (3.5-5.1); TOTAL PROTEIN 6.9 g/dL (6.4-8.2)
[2018-10-11 07:05] LABS: ABSOLUTE EOSINOPHILS 0.3 thou/uL (0.0-0.7); ABSOLUTE MONOCYTES 0.3 thou/uL (0.0-1.2); ABSOLUTE NEUTROPHILS 8.7 thou/uL (1.6-8.1); ATYPICAL LYMPHS 1 %; PLATELET ESTIMATE ADEQUATE
--- NOTE | 2018-10-11 07:25 | NUR ---
ASSUMED PT CARE @ 1930. PT A+O X 4. PT WANTED TO SLEEP IN CHAIR. PROVIDED WAFFLE CUSHION. DENIED PAIN. PT AFIB W BBB AND EVA FROM UPPER 30'S TO 50'S THROUGHOUT SHIFT. PT ASYMPTOMATIC. AMBULATES W STEADY GAIT AND STANDBY ASSIST. PT HAD PRODUCTIVE COUGH THROUGHOUT THE NIGHT. CALL LIGHT IN REACH. WILL CONTINUE TO MONITOR FOR SAFETY.
[2018-10-11 08:00] VITALS: BP 120/50
--- NOTE | 2018-10-11 08:00 | NUR ---
ASSUMED CARE OF PT ASSESSED AND DOCUMENTED. PT ON CARDIAC MONITER TRACING SB. VSS WNL. PT IS AFEBRILE. SHE IS ON 2L OF 02. SHE IS A&O WITH NO C/O PAIN. BED IS IN LOW POSITION CALL LIGHT IS IN REACH. WM.
[2018-10-11 11:51] VITALS: BP 122/42
--- NOTE | 2018-10-11 11:58 | NUR ---
CASE DISCUSSED WITH DALTON FELDER AND CRAIG. PT WILL NEED IV ANTIBX X2 FOR 7-10 DAYS AND THEN X1 FOR REMAINDER OF 4WKS. CALLED AND FAXED REFERRAL TO [facility] TO CHECK COST. PER [facility], COST FOR 2 IV ANTIBX IS $227.80 A WEEK, ONCE DOWN TO 1 ANTIBX, IS STILL $207.80/WEEK UNTIL PT'S OOP OF $5900 MET (HAS MET $2600 PRIOR TO THIS HOSPITAL STAY) ORDERS RECEIVED FROM DR SRINIVASAN FOR IVS. DISCUSSED WITH PT, SHE WAS STILL SOMEWHAT LETHARIG AND SLIGHTLY CONFUSED, SAID HER DTR HELPS HER WITH MEDS AT HOME AND WANTED CM TO CONTACT HER . CALL TO [facility] [phone]. DISCUSSED DC PLAN, HE DIDN'T THINK HE OR PT COULD MANAGE IVS AND STATED CM WOULD HAVE TO TALK WT DTR/LINDA. SPOKE WITH LINDA/[phone]. DISCUSSED DC PLAN AND COST FOR IVS AT HOME, SHE DID STATE THAT WHEN PT ON 'SHOTS', SHE AND HER HAD TO GO 2X/DAY TO ADMINISTER. SHE IS A CMT AND WORKED IN [employer] BUT NOT SURE SHE COULD MANAGE THOSE IVS AT HOME AT THIS TIME, WOULD CONSIDER IF JUST DOWN TO ONE IV. LINDA TALKED WITH PT'S SPOUSE AND THEY ARE AGREEABLE TO CONSIDER SNF AT [facility] AT LEAST INITIALLY. TALKED WITH PT ABOUT IT AGAIN AND SHE IS AGREEABLE TO CONSIDER [facility]. CALLED AND FAXED REFERRAL TO [facility], THEY WILL NEED TO OBTAIN AUTH FROM INSURANCE WHICH SHE WILL WORK ON TODAY IT IS A HOLIDAY WEEKEND. ANTICIPATE DC TUESDAY. WILL FOLLOW
--- NOTE | 2018-10-11 12:24 | NUR ---
Nutrition: Pt assessed for LOS. alb 3.2. Wt stable, 156#. CHO controlled diet. BG ok. Admitted with septicemia. Likely will discharge to SNF on Tuesday. No nutrition needs at this time. PLEASE ENCOURAGE GOOD PO INTAKE AT MEAL TIMES. SUPPLEMENTS AVAILABLE IF PO INTAKE DECREASES TO <50%.
--- NOTE | 2018-10-11 13:31 | NUR ---
RIGHT UPPER ARM BASILIC VESSEL ACCESSED FOR 4 CZECH SINGLE LUMEN PICC. LINE PRE-TRIMMED TO 40 CM AND ADVANCED TO THE ZERO KYLER WITH NO RESISTANCE MET. UPPER ARM CIRDUMFERENCE ABOVE ISERTION SITE = 11 1/2". SHERLOCK MAGNET AND 3CG CONFIRMATION SHOWS LINE COILS IN THE SUCLAVIAN. LINE PULLED BACK AND READVANCED WITH PATIENT IN HIGH MCGREGOR POSITION BUT UNABLE TO GET CONFIRMATION OF TIP TERMINATING DOWNWARD. STYLET REMOVED, INSERTINO SITE DRESSED. PATIETN POSITIONED SITTING UP AND LEANING FORWARD, LINE POWER-FLUSHED WITH 40 ML OF NORMAL SALINE VIGOROUSLY IN PULSATILE TECHNIQUE. POST-PROCEDURE CHEST X-RAY SHOWS TERMINATION IN THE LOWER 1/3 OF THE SVC BELOW THE PAOLA.REPORT GIVEN TO JAZMIN WADDELL.
[2018-10-11 16:18] VITALS: BP 125/62
--- NOTE | 2018-10-11 17:24 | NUR ---
PT HAS RESTED IN HER ROOM THIS SHIFT. NO NOTED CHANGES. EDUCATION GIVEN ON DEMAND. HOURLY ROUNDING COMPLETE.
[2018-10-11 20:00] VITALS: BP 122/54
[2018-10-12] VITALS: BP 133/60
[2018-10-12 04:00] VITALS: BP 112/64
[2018-10-12 04:57] LABS: HEMATOCRIT 31.7 % (37.0-47.0); MCH 26.6 pg (26.0-34.0); MCHC 31.7 g/dL (28.0-37.0); MPV 7.9 fl. (7.2-11.1); RBC 3.77 mil/uL (4.20-5.00); RDW-CV 17.4 % (10.5-14.5); WBC 8.1 thou/uL (4.0-11.0)
[2018-10-12 05:02] LABS: INR 3.6; PROTIME 36.9 Seconds (9.20-11.50)
[2018-10-12 05:09] LABS: CALCIUM 8.8 mg/dL (8.5-10.1); CREATININE 1.1 mg/dL (0.6-1.3); MAGNESIUM 1.8 mg/dL (1.8-2.4); POTASSIUM 4.2 mmol/L (3.5-5.1)
[2018-10-12 08:36] VITALS: BP 124/43
[2018-10-12 12:00] VITALS: BP 112/42
[2018-10-12 16:00] VITALS: BP 117/42
--- NOTE | 2018-10-12 16:46 | NUR ---
PT REMAINED ALERT AND ORIENTED THIS SHIFT. PT ANSWERED ORIENTATION QUESTIONS CORRECTLY. PT IS ON 2LITERS BY NASAL CANNULA. PT WAS SLIGHTLY WHEEZY IN ALL LUNG LAO. PT HAS BEEN A-FIB, BBB, AND BRADYCARDIC ON THE MONITOR. BED ALARM ON AND CHAIR ALARM ON. HOURLY ROUNDING COMPLETED. WILL CONTINUE TO MONITOR.
--- NOTE | 2018-10-12 18:18 | NUR ---
REVIEWED AND AGREE WITH ALL CHARTING AND ASSESSMENTS COMPLETED BY HEATHER Barajas RN
[2018-10-12 19:30] VITALS: BP 109/41
--- NOTE | 2018-10-12 20:00 | NUR ---
RECEIVED REPORT AND ASSUMED CARE OF PT, ASSESSMENT COMPLETED. SITTING UP IN RECLINER WITH FEET ELEVATED. STATES SHE STAYS IN RECLINER FOR HER BREATHING. ENCOURAGED TO SHIFT WEIGHT FREQ TO PREVENT PRESSURE AREAS. SITTING ON WAFFLE CUSHION. O2 ON AT 2L/NC, SOB WITH ACTIVITY. HAVING OCC MOIST PRODUCTIVE COUGH. TELEMETRY ON SHOWING SLOW A-FIB WITH BBB. WILL CONT TO MONITOR AND ASSIST NEEDED.
[2018-10-13] VITALS: BP 114/52
[2018-10-13 04:00] VITALS: BP 119/58
--- NOTE | 2018-10-13 06:09 | NUR ---
REMAINED UP IN CHAIR ALL NIGHT. SLEEPING ONLY SHORT PERIODS OF TIME. NO CHANGE IN ASSESSMENT. TELEMETRY CONT TO SHOW SLOW A-FIB WITH BBB. HS GOALS OF REST AND SAFETY ACHIEVED. HOURLY ROUNDING OBSERVED.
[2018-10-13 08:03] VITALS: BP 106/38
--- NOTE | 2018-10-13 08:58 | NUR ---
ASSUMED CARE OF PT THIS AM AROUND 0715- SIGNALS INTELLIGENCE SUPERINTENDENT IN PLACE ORDERED, TRACING A-FIB WITH BBB AND EVA- UPON ASSESSMENT PT NOTED TO BE RESTING IN BED SIDE RECLINER WATCHING TV; AT SIDE VISITING- PT A&O X4- CONTINENT OF BOWEL AND BLADDER- SBA WITH TRANSFERS FOR SAFETY- COURSE LUNG SOUNDS, WET COUGH NOTED- REPORTS TO BE COUGHING UP THICK YELLOW SPUTUM- RESP EVEN AND [id number]-OPFWCOR-[id number], O2 SAT 94% ON 1L VIA NC-ABDOMEN SOFT/ROUND/NON-TENDER, BS X4 QUADS- LAST BM REPORTED 10/12/18- +1 BLE PITTING EDEMA NOTED- IV NOTED TO RIGHT FA INTACT AND SL- RUE PICC NOTED INTACT AND SL, NO S/S INFECTION- PT JAMEEL ANY C/O PAIN/DISCOMFORT AT THIS TIME- CALL LIGHT AND PERSONAL BELONGINGS WITH IN REACH- HOURLY ROUNDS IN PLACE R/T SAFETY/NEEDS- ALL NEEDS MET AT THIS TIME- WCTM
[2018-10-13] MEDS ORDERED: GENTAMICIN60 MG/6 ML IV (09:22)
[2018-10-13] MEDS ORDERED: AMPICILLIN SODIU2 GM IV (09:23)
[2018-10-13 09:25] VITALS: BP 106/38
[2018-10-13] MEDS ORDERED: COLACE100 MG PO (09:52)
[2018-10-13] MEDS ORDERED: MIRALAX17 GM PO (09:58)
[2018-10-13] MEDS ORDERED: APAP650 PO (10:00)
--- NOTE | 2018-10-13 10:18 | NUR ---
Pt discharging to [facility] skilled today, facility to picking supervisor at 1230. Faxed dc orders. Chart copied. Dtr in room and aware of disposition. Nurse report number provided, [phone].
--- NOTE | 2018-10-13 11:22 | NUR ---
ORDERS RECIEVIED THIS SHIFT FOR OKAY TO D/C TO SKILLED UNIT TODAY FOR IV THERAPY TO CONTINUE PER DAKSHA CHANDRA THIS SHIFT- SCHEDULED DOSES OF AMPICILLIN AND GENTAMICIN GIVEN PRIOR TO D/C- PERIPHERAL IV TO RIGHT FA D/C'D PRIOR TO D/C, ALONG WITH FRETTED INSTRUMENT MAKER HAND- RUE PICC LEFT IN PLACE INDICATED FOR D/C- D/C TEACHING/EDUCATION GIVEN TO PT AND DAUGHTER PRIOR TO D/C WITH ALL QUESTIONS AND CONCERNS ADDRESSED PRIOR TO D/C- WRITEN EDUCATION PROVIED TO PT PRIOR TO D/C- BELONGINGS PACKED AND ACCOUNTED FOR PER PT AND DAUGHTER- REPORT CALLED TO MIRA SANABRIA AT [facility] AT 1115; ALL QUESTIONS AND CONCERNS ADDRESSED- PT CURRENLTY DRESSED AND READY IN BED SIDE RECLINER AWAITING W/C VAN- SCHEDULED WHITE METAL CASTER TIME NOTED FOR 1230 THIS SHIFT-ALL NEEDS MET AT THIS TIME-WCTM
--- NOTE | 2018-10-14 15:44 | CON ---
[address] [address] CONSULTATION Name: CIRILO COX Room: [address] IN M.R.#: [id number] Admission: 10/04/18 Attend Phys: Regis Lua MD Discharge: 10/13/18 Date of : 50 Report #: [id number] THIS REPORT FOR: //name// CC: Regis Rodriguez DATE OF SERVICE: 10/05/2018 HISTORY OF PRESENT ILLNESS: This is a 68-year-old female patient who was evaluated by me for altered mental status. The daughter provides most of the history. She indicates that this patient does have some memory issues in the baseline, but she got confused about taking the medications. She was here in June and at that time, her memory issues had become worse. Then, they became better and then she started deteriorating again. She mixes up her medications. She herself says she is able to drive and take her medication by herself, but the daughter thinks the patient makes it up. She also has some spacing out or blanking spells. This patient was here in June, those records were reviewed. She had multiple systemic problems, which can cause her encephalopathy at that time and looks like she became better from that. She also used to drink a lot of alcohol at that time. REVIEW OF SYSTEMS: Indicate that the patient has replaced heart valve. She has a history of atrial fibrillation. She takes Coumadin and she manages her own Coumadin. She has a history of hypertension and cardiomyopathy. She denies any prior history of stroke. I carried out the 14-point review of system and this was a relevant 14-point review of system. PAST MEDICAL HISTORY: Positive for encephalopathy. FAMILY HISTORY: Negative for any early age stroke. SOCIAL HISTORY: She has a history of drinking alcohol, but presently she is not very straightforward how much she drinks alcohol. PHYSICAL EXAMINATION: Indicate that she is alert. She is responsive. She can follow simple commands. She knows what month it is. She made mistakes on exact date. She knows what hospital she is in and who the president is. When asked to remember 3 objects, she remembered only one at even 30 second interval. Fund of knowledge and memory is diminished. Cranial nerve examination 2-12 looks unremarkable. She has symmetrical strength, sensation, reflexes and tone in all 4 extremities. Her reflexes are diminished in both lower extremities. There is no cerebellar sign. I tried to do the fundus examination, but I could not do it because the patient [place] [address] CONSULTATION Name: BROOKECIRILO Room: [address] IN ..#: [id number] Admission: 10/04/18 Attend Phys: Regis Lua MD Discharge: 10/13/18 Date of : 50 Report #: [id number] The patient is moderately built individual. She does not have any dysmorphic features of eyes, ears and face. Her vision and hearing looks adequate. She has no thyroid mass. Her pulses are difficult to feel. Heart showed finding consistent with replaced valve. No respiratory difficulty, which was severe, but scattered rhonchi are present on both sides. Blood pressure is 119/53, pulse is 59, temperature is 97.6. LABORATORY DATA: White count is 9. The patient does have some hypokalemia and hyponatremia. She also has low magnesium, at one time it was very low. IMPRESSION: This patient may have some baseline dementia. On top of that, she gets metabolic disturbances and get decompensated. She needs a formal neuropsychological testing to determine her capabilities and her cognitive ability to do things and/or take precaution. I discussed with the patient and the daughter that aspect of it and they understand that. She may have to go to assisted living if she can manage her medication. RECOMMENDATIONS: 1. We will get an MRI done if MRI can be done. 2. I will suggest continue to work to treat her metabolic abnormalities including multiple electrolyte imbalances including magnesium, potassium, sodium. 3. She needs a formal neuropsychological testing as an outpatient. 4. Speech has been evaluating this patient and we will see what they say after the cognitive evaluation. More than 50 minutes of time was spent taking care of this patient today and majority of that time was spent counseling the patient and the daughter on above matters. <ELECTRONICALLY SIGNED> By: Mykel Vail MD 10/14/18 1544 [id number] [id number] Vail MD /nt
--- NOTE | 2018-10-14 15:44 | EEG ---
[address] [address] EEG STUDY REPORT Name: CIRILO COX Room: [address] IN .R#: [id number] Admission: 10/04/18 Attend Phys: Regis Lua MD Discharge: 10/13/18 Date of : 50 Report #: [id number] THIS REPORT FOR: //name// CC: Regis Prasad [facility] DATE OF SERVICE: 10/05/2018 DESCRIPTION: This patient is being evaluated for confusion. EEG was done by placing the electrode by standard 10-20 system of electrode placement. Both referential and sequential montages were used for recording. Background activity in this patient's EEG is about 8 Hz and 30 microvolt. It is a poorly formed background activity. It is intermixed with theta range slowing on both sides. Photic stimulation is unremarkable. Throughout the record, no active epileptiform activity was noticed. IMPRESSION: This is an abnormal EEG because it is intermixed with theta range slowing on both sides. That is a nonspecific abnormality, which can occur with encephalopathy, effect of psychotropic medication, dementia, etc. Clinical correlation is recommended. <ELECTRONICALLY SIGNED> By: Mykel Vail MD 10/14/18 1544 1503 [id number] Vail MD /anuradha
--- NOTE | 2018-10-16 13:08 | CON ---
[address] [address] CONSULTATION Name: CIRILO COX Room: [address] IN M.R.#: [id number] Admission: 10/04/18 Attend Phys: Regis Lua MD Discharge: 10/13/18 Date of : 50 Report #: [id number] THIS REPORT FOR: //name// CC: Regis Rodriguez DATE OF SERVICE: 10/11/2018 HISTORY OF PRESENT ILLNESS: The patient is a 68-year-old white female who I was asked to see in the hospital today after she was noted to be bradycardic. The patient has an extensive and complicated past medical history. She apparently had replacement of both the mitral and aortic valve at [facility] in 2005. She has been chronically anticoagulated. Recently, she has been followed by my partner, Dr. Diaz. She also has chronic atrial fibrillation. Apparently, she had cardioversion years ago that failed and she is now chronically anticoagulated. She actually just saw Dr. Diaz in the Cardiology Clinic 10 days ago as an outpatient. She has a history of edema and has been on diuretics. She also has a history of low blood pressure and has been on midodrine and she made no changes in her medications. She was then admitted here to [facility] 10 days ago complaining of confusion. Family members brought her to the Emergency Room. She has also been short of breath. She has now been in the hospital since then. Apparently, she is getting ready to be transferred to residential. Her current problem list includes Enterococcus faecalis bacteremia and fatigue. She has a history of rheumatoid arthritis. On the monitor, she is noted to be bradycardic and Cardiology consultation was requested. She actually denies any recent chest pain. She does have chronic dyspnea. She has been coughing. She denied any palpitation or syncope. PAST MEDICAL HISTORY: Otherwise, significant for no other major surgical procedures. She does have a history of glucose intolerance, rheumatoid arthritis and hyperlipidemia. MEDICATIONS: Previous medications include carvedilol, Lexapro, Lasix, Synthroid, midodrine, Pravachol, spironolactone and warfarin. ALLERGIES: She has no known drug allergies. FAMILY HISTORY: Heart disease runs in the family. SOCIAL HISTORY: She is . She and her live in [place], [place]. Quit smoking years ago and rarely drinks alcohol. REVIEW OF SYSTEMS: She has had no history of stroke. She does have COPD and is on a nebulizer. No history of peptic ulcer disease, liver disease, [place] [address] CONSULTATION Name: CIRILO COX Room: [address] IN M.R.#: [id number] Admission: 10/04/18 Attend Phys: Regis Lua MD Discharge: 10/13/18 Date of : 50 Report #: [id number] disease, cancer or psychiatric illness. PHYSICAL EXAMINATION: GENERAL: Revealed a frail appearing female, lying in bed. She appeared in no acute distress. VITAL SIGNS: Showed blood pressure 120/60, pulse is 60. She is afebrile. HEENT: She was anicteric, conjunctiva pink. Mucous membranes were dry. NECK: Supple. CHEST: Decreased breath sounds. CARDIAC: Irregular rhythm. Metallic aortic opening and closing sound, grade 2 systolic ejection murmur. ABDOMEN: Soft. EXTREMITIES: Had trace edema. SKIN: Cool and dry. LABORATORY DATA: Her ECG showed atrial fibrillation with a slow response, left bundle branch block. Her workup in the hospital, she had a transesophageal echocardiogram performed yesterday by Dr. Forman that showed ejection fraction estimated at 40%; biatrial enlargement, mechanical aortic valve, no regurgitation; mechanical mitral valve, only trace mitral regurgitation; moderate tricuspid insufficiency, no shunt; left atrial dilatation, no thrombus. Her x-rays so far includes the following: She had a portable chest x-ray today that showed PICC line in place, mild pulmonary vascular congestion. Her lab work, potassium 4.5, creatinine 1.1. Liver function studies reveal alkaline phosphatase is 160. Albumin 3.2. Her TSH is elevated at 1.1 and T4 1.0. Her hemoglobin is 10.6. IMPRESSION AND RECOMMENDATIONS: 1. Cardiomyopathy. Because of the bradycardia, I would recommend discontinuing her beta prince. She is not on an JOE nor ARB because of low blood pressure. I would continue Lasix as needed. 2. Previous replacement of the aortic and mitral valves. I would continue chronic anticoagulation to maintain an INR 2.5-3.5. 3. Atrial fibrillation. Rate noted to be slow. I would discontinue her beta prince. The patient is chronically anticoagulated. 4. Hyperlipidemia. The patient is on a statin drug. 5. Recent episode of confusion. 6. Edema. Suspect venous insufficiency. 7. History of rheumatoid arthritis. 8. Bacteremia. No evidence of prosthetic valve endocarditis. 9. Chronic anticoagulation. The patient is on warfarin. Her most recent INR done today was 3.1. <ELECTRONICALLY SIGNED> By: Gaston Dallas MD, [facility] 10/16/18 1308 1737 [id number] Dallas MD, FACFan /nt
== END 2018-10-13 12:40 | DRG 871 ==
LOC: M.ERS 12:09 → M.2W 15:29 → M.TBA-ER 15:29 → M.2W 16:33 → M.ORTHSURG 10-08 14:02 → M.2W 10-10 15:26
PROVIDERS: Internal Medicine; Internal Medicine Cardiovascular Disease; Personal Emergency Response Attendant; Specialist; ADMIT Internal Medicine
PROC: B24BZZ4 Ultrasonography of Heart with Aorta, Transesophageal (ICD-10-PCS; principal; 2018-10-10)
PROC: 02HV33Z Insertion of Infusion Device into Superior Vena Cava, Percutaneous Approach (ICD-10-PCS; 2018-10-11)
DX: A41.81 Sepsis due to Enterococcus (principal); J18.9 Pneumonia, unspecified organism; G93.41 Metabolic encephalopathy; I42.9 Cardiomyopathy, unspecified; I38 Endocarditis, valve unspecified; J96.11 Chronic respiratory failure with hypoxia; K21.9 Gastro-esophageal reflux disease without esophagitis; M06.9 Rheumatoid arthritis, unspecified; E78.5 Hyperlipidemia, unspecified; I48.91 Unspecified atrial fibrillation; E11.9 Type 2 diabetes mellitus without complications; I50.9 Heart failure, unspecified; I11.0 Hypertensive heart disease with heart failure; R00.1 Bradycardia, unspecified; F32.9 Major depressive disorder, single episode, unspecified; M19.90 Unspecified osteoarthritis, unspecified site; Z79.01 Long term (current) use of anticoagulants; Z95.2 Presence of prosthetic heart valve; Z86.718 Personal history of other venous thrombosis and embolism; Z82.49 Family history of ischemic heart disease and other diseases of the circulatory system; Z79.899 Other long term (current) drug therapy

== ENCOUNTER 2018-10-20 19:40 | Inpatient (IN) | payer OTHER ==
[~2018-10-20] VITALS: Ht 157.5 cm; Wt 65.3 kg
--- NOTE | ~2018-10-20 | PROC ---
[address] [address] PROCEDURE REPORT Name: CIRILO COX Room: [address] IN M.R.#: [id number] Admission: 10/20/18 Attend Phys: Regis Lua MD Discharge: 10/24/18 Date of : 50 Report #: [id number] THIS REPORT FOR: //name// For GI report, please see the Provation report in Perceptive 7. By: 0644Medical Records Staff SILVIO /OWEN
[~2018-10-20 19:40] MED LIST changes: +ADULT LOW DOSE81 MG PO; +AMPICILLIN SODIU2 GM IV; +APAP650 PO; +CIPRO500 MG PO; +COLACE100 MG PO; +GENTAMICIN60 MG/6 ML IV; +MIRALAX17 GM PO
[2018-10-20 19:52] VITALS: BP 93/40
[2018-10-20] MEDS ORDERED: ONDANSETRON HCL4 M2 PO (20:03)
[2018-10-20] MEDS ORDERED: LASIX 40 MG TAB40 M2 PO (20:08)
[2018-10-20] MEDS ORDERED: IPRATROPIUM-ALBUTERO INH (20:10)
[2018-10-20] MEDS ORDERED: IPRATROPIUM-ALBUTERO (20:11)
[2018-10-20 20:33] LABS: ABSOLUTE BASOPHILS 0.2 thou/uL (0.0-0.2); ABSOLUTE EOSINOPHILS 0.4 thou/uL (0.0-0.7); ABSOLUTE LYMPHOCYTES 2.3 thou/uL (0.8-5.3); ABSOLUTE MONOCYTES 1.4 thou/uL (0.0-1.2); ABSOLUTE NEUTROPHILS 11.2 thou/uL (1.6-8.1); BASOPHILS 1.2 %; EOSINOPHILS 2.4 %; LYMPHOCYTES 14.8 %; MCH 27.1 pg (26.0-34.0); MCHC 31.1 g/dL (28.0-37.0); MCV 87.3 fL (80.0-100.0); MONOCYTES 9.1 %; MPV 7.9 fl. (7.2-11.1); NUCLEATED RBCS 1 /100WBC; PLATELET COUNT* 405 thou/uL (150-400); POLYS 72.5 %; RBC 1.75 mil/uL (4.20-5.00); RDW-CV 19.2 % (10.5-14.5); WBC 15.5 thou/uL (4.0-11.0)
[2018-10-20 20:35] LABS: HEMATOCRIT 15.3 % (37.0-47.0); HEMOGLOBIN 4.8 gm/dL (12.0-15.0)
[2018-10-20 20:38] LABS: INR 1.7; PROTIME 17.5 Seconds (9.20-11.50)
[2018-10-20 20:51] LABS: ANION GAP 10 mmol/L (7-16); BUN 35 mg/dL (7-18); CHLORIDE 89 mmol/L (98-107); CO2 26 mmol/L (21-32); CREATININE 1.6 mg/dL (0.6-1.3); GLUCOSE 316 mg/dL (70-99); POTASSIUM 4.2 mmol/L (3.5-5.1); SODIUM 125 mmol/L (136-145)
[2018-10-20 20:55] LABS: ALBUMIN 2.8 g/dL (3.4-5.0); ALKALINE PHOSPHATASE 126 U/L (46-116); SGOT 27 U/L (15-37); SGPT 12 U/L (30-65); TOTAL BILIRUBIN 0.7 mg/dL (<0.1-1.0); TOTAL PROTEIN 6.7 g/dL (6.4-8.2); TROPONIN-I LEVEL <0.06 ng/mL (<0.06)
[2018-10-20 22:00] VITALS: BP 107/47
[2018-10-20 22:28] VITALS: BP 101/56; BP 105/51; BP 111/53; BP 116/45
[2018-10-20 23:00] VITALS: BP 111/53
[2018-10-21] VITALS (15 sets, daily range): BP systolic 105–143; BP diastolic 32–82
[2018-10-21 02:39] LABS: URINE BILIRUBIN NEGATIVE (Negative); URINE BLOOD NEGATIVE (Negative); URINE CLARITY CLEAR; URINE COLOR YELLOW; URINE GLUCOSE-RANDOM NEGATIVE (Negative); URINE KETONES NEGATIVE (Negative); URINE LEUKOCYTES-REFLEX NEGATIVE (Negative); URINE NITRITE-REFLEX NEGATIVE (Negative); URINE PROTEIN NEGATIVE (Negative); URINE SPECIFIC GRAVITY 1.015 (1.005-1.030); URINE UROBILINOGEN 0.2 E.U./dl (0.2-1.0)
--- NOTE | 2018-10-21 06:50 | NUR ---
PROGRESSING TOWARDS GOALS, SEE COMPUTERIZED ASSESSMENT CHARTING FOR FURTHER DETAILS, AWAKE MOST OF NOC, C/O INTERMITTENT BILAT LEG CRAMPS THAT RESOLVED WITH POSITIONING, AFIB RATE CONTROLLED WITH BBB TRACING ELECTRICAL SYSTEMS DESIGN ENGINEER, OXYGEN 2L PER NC SAO2 =>98%, NO S/S ACUTE BLEEDING NOTED, NO ADVERSE EFFECTS FROM PRBC TRANSFUSION, SECOND UNIT PRBC TRANFUSING AT PRESENT TIME, HBG FROM 4.2 TO 5.7 THIS SHIFT, AWAKE, ALERT AND CONVERSATIVE AT THIS TIME. REMAINS NPO PER ORDER, FREQUENT ORAL CARE PROVIDED. CALL LIGHT REMAINS IN REACH, BED REMAINS IN LOW AND LOCKED POSITON.
--- NOTE | 2018-10-21 15:20 | NUR ---
1500 ASSUMED CARE OF PATIENT. REPORT FROM HENRY WADDELL.
--- NOTE | 2018-10-21 15:53 | NUR ---
TITRATED TO ROOM AIR. SEE DOCUMENTED ASSESSMENT
--- NOTE | 2018-10-21 17:34 | NUR ---
PATIENT PROGRESSING TOWARDS GOALS. HEMOGLOBIN STABILIZED. RESUMED DIET. UP TO BSC. VSS. STARTING BOWEL PREP. HAS HAD VISITORS. NO EVIDENCE OF BLEEDING.PLAN IS FOR SCOPE ON TUESDAY
--- NOTE | 2018-10-21 22:13 | NUR ---
FSBS HS 211, PT STATES HS DM, ALSO STATES PRIMARY MD HAD DC'D PO HYPERGLYCEMIC MEDICATIONS IN 03/2018 R/T "NO LONGER A DIABETIC", FSBS BEFORE DINNER MEAL TODAY WAS 201, SPOKE WITH DR HAGEN VIA TELEPHONE, NEW ORDERS RECEIVED BEGIN LOW DOSE HUMALOG SLIDING SCALE PROTOCOL, WILL COMMUNICATE NEW ORDERS WITH PT AND INITIATE ORDERED.
[2018-10-22] VITALS (14 sets, daily range): BP systolic 111–140; BP diastolic 46–76
--- NOTE | 2018-10-22 06:30 | NUR ---
NO FURTHER CHANGES IN ASSESSMENT, SEE COMPUTERIZED ASESSMENT CHARTING FOR FURTHER DETAILS, RESTING QUIELTY WITH EYES CLOSED OFF AND ON DURING NOC, TYLENOL 650MG PO X1 PRN FOR C/O HEADACHE 6/10 ON NUMERICAL PAIN SCALE, PT VERBALIZED TYLENOL EFFECTIVE, HEADACHE RESOLVED, NO S/S ACTIVE BLEEDING NOTED, X1 CONSTIPATED HARD BM DURING NOC, UP TO BSC WITH X1 ASSIST AND STEADY GAIT, AWAKE, ALERT AND CONVERSATIVE THIS AM, DENIES NEEEDS AT PRESENT TIME.
[2018-10-22 06:58] LABS: ABSOLUTE EOSINOPHILS 0.3 thou/uL (0.0-0.7); ABSOLUTE LYMPHOCYTES 1.3 thou/uL (0.8-5.3); ABSOLUTE NEUTROPHILS 7.2 thou/uL (1.6-8.1); BASOPHILS 0.3 %; EOSINOPHILS 2.9 %; HEMATOCRIT 24.1 % (37.0-47.0); LYMPHOCYTES 13.4 %; MCH 28.1 pg (26.0-34.0); MCV 85.1 fL (80.0-100.0); MONOCYTES 9.8 %; MPV 7.6 fl. (7.2-11.1); NUCLEATED RBCS 1 /100WBC; PLATELET COUNT* 298 thou/uL (150-400); POLYS 73.6 %; RBC 2.83 mil/uL (4.20-5.00); RDW-CV 16.7 % (10.5-14.5); WBC 9.8 thou/uL (4.0-11.0)
[2018-10-22 07:06] LABS: INR 1.3; PROTIME 12.8 Seconds (9.20-11.50)
[2018-10-22 07:09] LABS: ALBUMIN 2.8 g/dL (3.4-5.0); CALCIUM 7.8 mg/dL (8.5-10.1); CREATININE 1.2 mg/dL (0.6-1.3); POTASSIUM 3.4 mmol/L (3.5-5.1); TOTAL BILIRUBIN 1.1 mg/dL (<0.1-1.0); TOTAL PROTEIN 6.5 g/dL (6.4-8.2)
--- NOTE | 2018-10-22 07:56 | NUR ---
0730 ASSUMED CARE OF PATIENT. PLEASE SEE DOCUMENTED ASSESSMENT. HEART RHYTHM IS A FIB WITH VÍCTOR INTO UPPER 40'S
--- NOTE | 2018-10-22 11:47 | NUR ---
PATIENT TO MOVE TO ROOM 214 AND SO INFORMED
--- NOTE | 2018-10-22 12:45 | NUR ---
TRANSFERRED PER WHEELCHAIR TO ROOM 214. REPORT TO EDE WADDELL.
--- NOTE | 2018-10-22 13:00 | NUR ---
ASSUMED CARE OF PT. REPORT FROM NADIAR MONSON. AGREE WITH PREVIOUS ASSESSMENT.
--- NOTE | 2018-10-22 13:23 | CON ---
[address] [address] CONSULTATION Name: CIRILO COX Room: [address] IN .R.#: [id number] Admission: 10/20/18 Attend Phys: Regis Lua MD Discharge: Date of : 50 Report #: [id number] THIS REPORT FOR: //name// CC: Regis Rodriguez MD INDICATION: Acute anemia secondary to probable gastrointestinal bleeding and the patient chronically anticoagulated with artificial heart valve. HISTORY OF PRESENT ILLNESS: The patient is a 68-year-old white female who is well known to myself with a history of mechanical aortic and mitral valve replacements remotely. The patient has cardiomyopathy with an ejection fraction of 40%. She has chronic combined heart failure. She has been chronically anticoagulated. She has had episodes of anemia felt to be due to intermittent bleeding. She was admitted to the hospital with profound anemia and dyspnea. She has been transfused and her hemoglobin is now stable. Per report, she has had some bright red blood per rectum. Presently she is hemodynamically stable. She is not having shortness of breath or chest pain. She is without other cardiac complaint at this time. PAST MEDICAL HISTORY: 1. Status post aortic and mitral valve replacements with mechanical valves in 2005 at [facility]. 2. Chronic atrial fibrillation. 3. Chronic combined heart failure. 4. Rheumatoid arthritis. 5. Hyperlipidemia. 6. Acute gastrointestinal bleeding and history of gastrointestinal bleeding. 7. Anemia. 8. Chronic renal insufficiency. 9. Diabetes. ALLERGIES: None. CURRENT MEDICATIONS: Midodrine 5 mg t.i.d., warfarin as directed per INR, aspirin 81 mg daily, levothyroxine 25 mcg daily, furosemide 160 mg p.o. daily, pravastatin 40 mg at bedtime, carvedilol 3.125 mg b.i.d., omeprazole 20 mg b.i.d., Lexapro 10 mg daily, Flexeril 10 mg t.i.d. p.r.n., spironolactone 50 mg daily, iron sulfate 325 mg daily, Colace p.r.n., MiraLax p.r.n., Tylenol p.r.n. FAMILY HISTORY: Noncontributory. SOCIAL HISTORY: The patient quit smoking remotely. [place] [address] CONSULTATION Name: CIRILO COX Room: [address]#: [id number] Admission: 10/20/18 Attend Phys: Regis Lua MD Discharge: Date of : 50 Report #: [id number] REVIEW OF SYSTEMS: A 14-point review of systems as per HPI. PHYSICAL EXAMINATION: VITAL SIGNS: Blood pressure 136/59, pulse 65. GENERAL: This is a pleasant lady, in no distress. Mood and affect appropriate. HEENT: Extraocular muscles intact. Mucous membranes are moist. NECK: Shows no carotid bruits. There is mild jugular venous distention. CHEST: Reveals clear lung harrington without wheezes or rales. CARDIAC: Reveals an irregular rhythm that is rate controlled. Aortic and mitral valve click is crisp. I do not appreciate obvious murmur or gallop. ABDOMEN: Reveals a protuberant abdomen, soft and nontender. EXTREMITIES: Shows no edema. SKIN: Warm and dry. LABORATORY DATA: Reviewed. Sodium 125, potassium 4.2, chloride 89, bicarbonate 26, BUN 35, creatinine 1.6, serum glucose 316. White blood cell count 15.5, hemoglobin on admission 4.8, presently 5.7, platelet count 405,000. IMPRESSION AND RECOMMENDATIONS: 1. Acute gastrointestinal bleed. The patient has been transfused. She is hemodynamically stable. Holding anticoagulant. GI evaluation pending. 2. Aortic and mitral mechanical valves in place. Obviously some risk in holding anticoagulation; however, the risk of anticoagulation in the setting of acute gastrointestinal bleed outweighs risk of holding anticoagulant. 3. Chronic heart failure, presently compensated. Resume home dose diuretics. 4. Diabetes. Per primary physician. 5. Chronic atrial fibrillation, rate adequately controlled presently. We will follow. <ELECTRONICALLY SIGNED> By: Joseluis Diaz MD, FACC 10/22/18 1323 1413 [id number] Diaz MD, FACC /nt
--- NOTE | 2018-10-22 19:32 | NUR ---
PT BEGAN BOWEL PREP AND HAS BEEN HAVING LIQUID STOOLS. PT UP WITH SBA TO BSC. NO C/O.
[2018-10-23] VITALS (7 sets, daily range): BP systolic 104–131; BP diastolic 54–65
[2018-10-23 04:36] LABS: ABSOLUTE BASOPHILS 0.1 thou/uL (0.0-0.2); ABSOLUTE EOSINOPHILS 0.1 thou/uL (0.0-0.7); ABSOLUTE MONOCYTES 0.8 thou/uL (0.0-1.2); ABSOLUTE NEUTROPHILS 5.7 thou/uL (1.6-8.1); BASOPHILS 0.8 %; EOSINOPHILS 1.8 %; HEMATOCRIT 22.1 % (37.0-47.0); HEMOGLOBIN 7.3 gm/dL (12.0-15.0); LYMPHOCYTES 12.8 %; MCH 28.3 pg (26.0-34.0); MCHC 33.2 g/dL (28.0-37.0); MCV 85.1 fL (80.0-100.0); MONOCYTES 10.6 %; NUCLEATED RBCS 1 /100WBC; PLATELET COUNT* 256 thou/uL (150-400); RDW-CV 16.5 % (10.5-14.5); WBC 7.7 thou/uL (4.0-11.0)
[2018-10-23 04:48] LABS: INR 1.2; PROTIME 12.4 Seconds (9.20-11.50)
[2018-10-23 04:54] LABS: ALBUMIN 2.6 g/dL (3.4-5.0); CALCIUM 7.7 mg/dL (8.5-10.1); TOTAL BILIRUBIN 1.1 mg/dL (<0.1-1.0); TOTAL PROTEIN 6.2 g/dL (6.4-8.2)
[2018-10-23 04:57] LABS: POTASSIUM 2.7 mmol/L (3.5-5.1)
--- NOTE | 2018-10-23 05:50 | NUR ---
PT AXO X4 AND RUNNING AFIB WITH PVCS ON HYDROSTATIC TESTER. PT TOILETING FREQUENTLY AFTER BOWEL PREP. ABD DISTENDED AND PT C/O ABD DISCOMFORT. NPO STARTED AT 0000 FOR GI CONSULT. HOURLY ROUNDING COMPLETED. WILL CONTINUE TO MONITOR.
--- NOTE | 2018-10-23 11:21 | NUR ---
Pt is A&O. Known to this CM from previous hospital stay. Pt has been skilled at [facility], Pt states that she does not want to return to [facility] [place], Pt plans to return home. Pt's and dtr in room and all in agreement with plan dc to home. Pt has a walker at home, but has not needed to use it. Pt has a home neb. Spoke with this morning, anticipate dc soon. to order therapy evals. Pt open to HH at dc, if necessary. Following.
--- NOTE | 2018-10-23 15:44 | EKG ---
[place] [address] ELECTROCARDIOGRAM REPORT Name: CRYSTAL COXLAUREN Diaz Room: [address] ADM IN M.R.#: [id number] Admission: 10/20/18 Attend Phys: Regis Lua MD Discharge: Date of : 50 Report #: [id number] THIS REPORT FOR: //name// [facility] Test Date: 2018-10-23 Test Time: 11:39:36 Pat Name: CIRILO COX Department: Room: [address] Gender: F Expanded Function Dental Assistant: : 1950 Requested By: Regis Lua Order Number: [id number] Rubén MD: Gaston Dallas Measurements Intervals [place] Rate: 61 P: AR: QRS: 188 QRSD: 172 T: 77 QT: 523 QTc: 527 Interpretive Statements Atrial fibrillation LBBB Compared to ECG 10/07/2018 07:48:00 no change Electronically Signed On 10-23-2018 15:44:07 DISPATCHER SHIP PILOT by Gaston Dallas [email or web address] <ELECTRONICALLY SIGNED> By: Gaston Dallas MD, [facility] 10/23/18 1544 1139 1139 Gaston Dallas MD, FACC /EPI
[2018-10-24] VITALS: BP 114/55
[2018-10-24 02:28] LABS: INR 1.3; PROTIME 13.8 Seconds (9.20-11.50)
[2018-10-24 04:00] VITALS: BP 123/75
--- NOTE | 2018-10-24 07:53 | NUR ---
PATIENT HAS SLEPT OFF AND ON DURING THE NIGHT. VSS ON RA. NO C/O PAIN. PATIENT HAS REMAINED NPO SINCE MIDNIGHT D/T SMALL BOWEL SERIES SCHEDULED TODAY. NEW IV PLACED IN LEFT HAND-IV ABT RUNNING. RIGHT UPPER ARM PICC-HEPARAIN DRIP RUNNING AT 12UNITS PER KG. PATIENT IS UP TO BSC WITH ASSIST X 1. PATIENT INSTRUCTED TO USE CALL LIGHT WHEN NEEDING ASSISTANCE. HOURLY ROUNDS MADE. WILL CONTINUE WITH PLAN OF CARE AND NURSING TO MONITOR.
[2018-10-24 08:24] LABS: ABSOLUTE BASOPHILS 0.1 thou/uL (0.0-0.2); ABSOLUTE EOSINOPHILS 0.2 thou/uL (0.0-0.7); ABSOLUTE LYMPHOCYTES 1.1 thou/uL (0.8-5.3); ABSOLUTE MONOCYTES 0.7 thou/uL (0.0-1.2); ABSOLUTE NEUTROPHILS 4.3 thou/uL (1.6-8.1); BASOPHILS 0.9 %; EOSINOPHILS 3.1 %; HEMATOCRIT 23.6 % (37.0-47.0); HEMOGLOBIN 7.6 gm/dL (12.0-15.0); LYMPHOCYTES 17.9 %; MCH 27.7 pg (26.0-34.0); MCHC 32.3 g/dL (28.0-37.0); MCV 85.8 fL (80.0-100.0); MONOCYTES 10.8 %; MPV 8.1 fl. (7.2-11.1); NUCLEATED RBCS 0 /100WBC; PLATELET COUNT* 258 thou/uL (150-400); POLYS 67.3 %; RBC 2.75 mil/uL (4.20-5.00); RDW-CV 16.5 % (10.5-14.5); WBC 6.4 thou/uL (4.0-11.0)
[2018-10-24 08:39] LABS: ALBUMIN 2.7 g/dL (3.4-5.0); CALCIUM 8.3 mg/dL (8.5-10.1); CREATININE 1.2 mg/dL (0.6-1.3); POTASSIUM 3.6 mmol/L (3.5-5.1); TOTAL BILIRUBIN 1.2 mg/dL (<0.1-1.0)
[2018-10-24 10:39] VITALS: BP 139/95
--- NOTE | 2018-10-24 11:38 | NUR ---
ASSUMED PT CARE AT 0700 PT IS ALERT AND ORIENTED X 3-4 PT IS FORGETFUL, PT DENIES PAIN OR SOA ON RA, PT IS UP WITH SBA TO BEDSIDE COMMODE PT IS NOT A FALL RISK, PT IS ON HEAPRIN DRIP PT APTT AROUND 0800 44.4 INCREASED DRIP AND GAVE BOLUS, PT WENT FOR ABDOMINAL XRAY SERIES CAME BACK ORDERED DIET, PT WANTS TO DISCHARGE TO HOME, PT IS SR PVC ON THE MONITOR, IFECTIOUS DISEASE CLEARED PT FOR DISCHARGE, WILL CONTINUE TO MONITOR
[2018-10-24 16:00] VITALS: BP 129/52
[2018-10-24] MEDS ORDERED: ENOXAPARIN80 MG/0.1 SUBQ (17:49)
[2018-10-24 17:50] VITALS: BP 129/52
[2018-10-24] MEDS ORDERED: AMOXICILLIN 50500 MG PO (17:55)
--- NOTE | 2018-10-25 09:07 | NUR ---
PT. DISCHARGE TO HOME PRIOR TO O.T. EVAL. PLEASE ORDER FURTHER O.T. SERVICES IF NEEDED.
--- NOTE | 2018-10-30 16:29 | CON ---
[address] [address] CONSULTATION Name: CIRILO COX Room: [address] M.R.#: [id number] Admission: 10/20/18 Attend Phys: Regis Lua MD Discharge: 10/24/18 Date of : 50 Report #: [id number] THIS REPORT FOR: //name// CC: Regis Diaz MD DATE OF SERVICE: 10/21/2018 REFERRING PHYSICIAN: Regis Lua MD REASON FOR CONSULTATION: Acute anemia. IMPRESSION: 1. Acute anemia with history of melena - evaluate for upper or lower GI tract source for the same. 2. Cardiomyopathy with ejection fraction 40%, with history of both mitral and aortic valve replacements, requiring chronic anticoagulation with Coumadin. 3. Recent Streptococcus faecalis infection including prolonged IV antibiotics (transesophageal echocardiography negative for vegetations). 4. Chronic alcohol abuse with continued use. 5. Cardiac ascites, mild (status post transjugular liver biopsy with measurement of hepatoportal venous gradient back in July of this year). RECOMMENDATIONS: 1. We will proceed with bowel preparation tomorrow for endoscopic evaluation of upper and lower GI tract on Tuesday. 2. We will defer anticoagulant use per cardiology. 3. Request records from to provide any previous endoscopic studies for review. 4. Further recommendation will be made post-endoscopy. HISTORY OF PRESENT ILLNESS: This is a very ill-appearing 68-year-old white female, well known to me from previous evaluation back in June when she was evaluated for problems related to liver disease. She is admitted to the hospital now with history of dark stools and acute anemia. She just finished up the course of antibiotics for Streptococcus faecalis infection within her blood stream and underwent a ESTEFANY, which did not reveal any vegetations on her prosthetic valves. She denies any complaints referable to her upper or lower GI tract other than dark stools. I think some of this could be related to taking iron. She recently underwent extensive evaluation during her last hospital course soon afterwards for source of her ascites and it was noted as cardiac with benign-appearing liver biopsy and no evidence for cirrhosis. She is currently admitted to [place] [address] CONSULTATION Name: CIRILO COX Room: [address]#: [id number] Admission: 10/20/18 Attend Phys: Regis Lua MD Discharge: 10/24/18 Date of : 50 Report #: [id number] ALLERGIES: None. MEDICATIONS: Warfarin, aspirin, levothyroxine, furosemide, pravastatin, carvedilol, omeprazole, Lexapro, Flexeril, Aldactone 50 mg once daily, polyethylene glycol p.r.n. PAST MEDICAL HISTORY: Significant for chronic atrial fibrillation, history of aortic and mitral valve replacements, hypertension, COPD, chronic arthritis, history of DVTs in the past. SOCIAL HISTORY: She is a former smoker, continues to drink alcohol. FAMILY HISTORY: Negative. PHYSICAL EXAMINATION: GENERAL: This is ill-appearing 68-year-old white female who is awake and alert. CARDIOPULMONARY: Revealed a regular rate and rhythm. LUNGS: Clear. ABDOMEN: Soft and not tender. No rebound or guarding was noted. LABORATORY TESTS: From admission revealed a white count only 15.5, hemoglobin 4.8, platelet count 45,000. Her MCV is 87.3 and RDW 19.2. Sodium 125, potassium 4.2, chloride 89, bicarbonate is 26, BUN 35, creatinine 0.6, GFR of only 32. Total bilirubin is 0.7, alkaline phosphatase is 126, AST 27, ALT 12, and albumin is 2.8. IMAGING DATA: CT scan of the abdomen and pelvis performed on 10/09 revealed decreased attenuation of the liver, compatible with fatty liver. She has had some ascites. DISCUSSION: At the present time, the patient has got acute anemia. She denies history of any overt gastrointestinal GI bleeding. She has been transfused at this point and her anticoagulants have been held. We will proceed with bowel preparation for endoscopic evaluation of the upper GI tract on Tuesday, 10/23. <ELECTRONICALLY SIGNED> By: Dexter Henley DO 10/30/18 [id number] Henley DO /nt
== END 2018-10-24 18:49 | disposition home or self-care (01) | DRG 871 ==
LOC: M.ERS 19:40 → M.TBA-ER 21:13 → M.ICU 21:13 → M.2W 21:13 → M.ICU 22:11 → M.2W 10-22 12:46
PROVIDERS: Emergency Medicine Emergency Medical Services; ADMIT Internal Medicine
DX: A41.81 Sepsis due to Enterococcus (principal); N17.0 Acute kidney failure with tubular necrosis; K57.31 Diverticulosis of large intestine without perforation or abscess with bleeding; D62 Acute posthemorrhagic anemia; I50.42 Chronic combined systolic (congestive) and diastolic (congestive) heart failure; I42.9 Cardiomyopathy, unspecified; E87.1 Hypo-osmolality and hyponatremia; I38 Endocarditis, valve unspecified; I13.0 Hypertensive heart and chronic kidney disease with heart failure and stage 1 through stage 4 chronic kidney disease, or unspecified chronic kidney disease; R65.10 Systemic inflammatory response syndrome (SIRS) of non-infectious origin without acute organ dysfunction; K21.9 Gastro-esophageal reflux disease without esophagitis; J44.9 Chronic obstructive pulmonary disease, unspecified; M06.9 Rheumatoid arthritis, unspecified; E78.5 Hyperlipidemia, unspecified; N18.9 Chronic kidney disease, unspecified; I48.2 Chronic atrial fibrillation; K64.4 Residual hemorrhoidal skin tags; K64.8 Other hemorrhoids; K44.9 Diaphragmatic hernia without obstruction or gangrene; K55.20 Angiodysplasia of colon without hemorrhage; F10.20 Alcohol dependence, uncomplicated; Z95.2 Presence of prosthetic heart valve; Z86.718 Personal history of other venous thrombosis and embolism; Z79.01 Long term (current) use of anticoagulants; Z87.891 Personal history of nicotine dependence; E11.22 Type 2 diabetes mellitus with diabetic chronic kidney disease

== ENCOUNTER → 2018-11-08 | Outpatient (CLI) | payer OTHER ==
[~2018-11-08] MED LIST changes: +AMOXICILLIN 50500 MG PO; +IPRATROPIUM-ALBUTERO; +IPRATROPIUM-ALBUTERO INH; +ONDANSETRON HCL4 M2 PO
[2018-11-08 11:07] LABS: ABSOLUTE EOSINOPHILS 0.2 thou/uL (0.0-0.7); ABSOLUTE LYMPHOCYTES 1.2 thou/uL (0.8-5.3); ABSOLUTE MONOCYTES 0.6 thou/uL (0.0-1.2); ABSOLUTE NEUTROPHILS 5.5 thou/uL (1.6-8.1); BASOPHILS 0.6 %; EOSINOPHILS 3.3 %; HEMOGLOBIN 8.9 gm/dL (12.0-15.0); LYMPHOCYTES 15.5 %; MCH 27.1 pg (26.0-34.0); MCHC 31.9 g/dL (28.0-37.0); MCV 84.9 fL (80.0-100.0); MONOCYTES 8.4 %; MPV 7.6 fl. (7.2-11.1); NUCLEATED RBCS 0 /100WBC; PLATELET COUNT* 298 thou/uL (150-400); POLYS 72.2 %; RDW-CV 19.1 % (10.5-14.5); WBC 7.6 thou/uL (4.0-11.0)
[2018-11-10 15:12] LABS: ANA INTERPRETATION Positive (Negative)
== END ==
LOC: M.LAB 10:40
PROVIDERS: Physician Assistant
DX: D64.9 Anemia, unspecified (principal); R94.5 Abnormal results of liver function studies; F10.10 Alcohol abuse, uncomplicated

== ENCOUNTER 2019-02-01 17:47 | Emergency (ER) | payer OTHER ==
[~2019-02-01] VITALS: Ht 160 cm; Wt 71.7 kg
[2019-02-01 19:07] LABS: HEMATOCRIT 35.3 % (37.0-47.0); HEMOGLOBIN 11.2 gm/dL (12.0-15.0)
[2019-02-01 19:11] VITALS: BP 129/49
[2019-02-01 19:14] LABS: APTT 38.8 Seconds (25.0-31.3); PROTIME 52.2 Seconds (9.20-11.50)
[2019-02-01 19:17] LABS: INR 5.2
== END 2019-02-01 19:11 | disposition home or self-care (01) ==
LOC: M.ERS 17:47
PROVIDERS: Physician Assistant
DX: R04.0 Epistaxis (principal); R79.1 Abnormal coagulation profile; I10 Essential (primary) hypertension; K21.9 Gastro-esophageal reflux disease without esophagitis; J44.9 Chronic obstructive pulmonary disease, unspecified; M06.9 Rheumatoid arthritis, unspecified; E78.5 Hyperlipidemia, unspecified; I48.91 Unspecified atrial fibrillation; E11.9 Type 2 diabetes mellitus without complications; Z86.718 Personal history of other venous thrombosis and embolism